=== PATIENT | female | born 1955 | race Caucasian/White ===

== ENCOUNTER 2016-06-27 03:57 | Emergency (ER) | payer OTHER ==
[2016-06-27] MEDS ORDERED: KETOROLAC TROMETHAMINE 60 MG/2 ML VIAL IM ONE ×2 (04:22→04:24)
--- NOTE | 2016-06-27 04:27 | ERNOTE ---
Back Pain ER HPI Date of Service: 06/27/16 Presenting Symptoms: hx chronic back pain Source: patient Immunizations: IMMUNIZATION HX Immunizations Up to Date Yes History of Influenza Vaccine No Hx Pneumococcal Vaccination No Allergies/Adverse Reactions: Allergies Penicillins Allergy (Intermediate, Verified 06/27/16 04:06) CANT BREATHE Home Medications: HOME MEDICATIONS Omeprazole 06/03/16 [Last Taken Unknown] Xanax 06/03/16 [Last Taken Unknown] Narrative: 61-year-old female returns once again the middle the night by ambulance requesting Dilaudid for her chronic back pain. I explained to this patient once again that we do not treat chronic pain in the emergency department and that she would not be getting an injection for Dilaudid. I offered Toradol and she accepted and was released after the injection of Toradol. Timing: Reports: constant Quality/Severity: Reports: severe - subjectively Location of pain: Reports: lower back Associated Symptoms: Reports: none - No bladder or bowel dysfunction - Patient's Past Medical History Patient History - Medical: Anxiety, Chronic Pain, Depression, GERD, Other Patient History - Cardiac/Respiratory: No pertinent hx Patient History - Cancer: No Hx of Cancer Patient History - Surgical Procedures: Total Knee Replacement, Tubal Ligation, Other - Family History Mother Family History - Medical: , Diabetes Type 2, Seizures, Other Family History - Cardiac/Respiratory: No pertinent hx Father Family History - Medical: , No pertinent hx Family History - Cardiac/Respiratory: No pertinent hx Sister Family History - Medical: , No pertinent hx Family History - Cardiac/Respiratory: No pertinent hx Brother Family History - Medical: , No pertinent hx Family History - Cardiac/Respiratory: History Unknown - Social History Living Situations: home Smoking Status: Current every day smoker Alcohol Use: none Drug Use: none ED Progress - Vital Signs Vital Signs: Vital Signs 06/27/16 04:01 Temperature 36.4 C L Pulse Rate 61 Respiratory 20 Rate Blood Pressure 107/49 O2 Sat by Pulse 96 Oximetry - Progress/Reassessment Chief Complaint: Back Pain Plan - Plan Plan: IM Toradol and encouraged to see her primary care provider to discuss chronic pain management Departure Clinical Impression: Drug-seeking behavior, Chronic pain syndrome Low back pain Qualifiers: Chronicity: chronic Back pain laterality: unspecified Sciatica presence: without sciatica Qualified Code(s): M54.5 - Low back pain; G89.29 - Other chronic pain - Departure Disposition: Home self-care Condition: Fair Additional Instructions: Make an appointment with your primary care provider to discuss your chronic pain and appropriate treatment.
[2016-06-27 04:34] VITALS: BP 106/72
== END 2016-06-27 04:33 | disposition home or self-care (01) ==
LOC: ER 03:57
DX: M54.5 Low back pain (principal); G89.29 Other chronic pain; Z76.5 Malingerer [conscious simulation]; F17.210 Nicotine dependence, cigarettes, uncomplicated

== ENCOUNTER 2016-07-01 09:13 | Emergency (ER) | payer OTHER ==
[2016-07-01] MEDS ORDERED: KETOROLAC TROMETHAMINE 60 MG/2 ML VIAL IM ONE ×2 (10:47→10:49)
--- NOTE | 2016-07-01 11:06 | ERNOTE ---
Back Pain ER HPI Date of Service: 07/01/16 Presenting Symptoms: hx chronic back pain Time Seen by Provider: 07/01/16 10:36 Source: patient, RN notes reviewed, past records Exam Limitations: clinical condition Immunizations: IMMUNIZATION HX Immunizations Up to Date Yes History of Influenza Vaccine Yes Hx Pneumococcal Vaccination No Allergies/Adverse Reactions: Allergies Penicillins Allergy (Intermediate, Verified 07/01/16 09:40) CANT BREATHE Home Medications: HOME MEDICATIONS Omeprazole 20 mg PO DAILY 06/03/16 [Last Taken Unknown] Xanax 1 mg PO QID 06/03/16 [Last Taken Unknown] Narrative: Inez is a 61-year-old female brought to the emergency department by the [facility] for back pain. She has a long-standing history of chronic pain as well as narcotic abuse. She was dismissed by her primary care provider, Dr. Gutierrez, yesterday due to missing appointments. His office had. A referral for her to be seen at the [facility] pain clinic. The pain clinic contacted her multiple times yesterday to set up an appointment, but she did not answer their calls. She refused to sign a pain contract at Dr. Gutierrez's office. She has been to the emergency department multiple times for various complaints of chronic pain issues. At times she has been intoxicated and even aggressive. She routinely takes Xanax, and today is reporting that it is making her too tired. She reports that she does not want to take anything that is going to cause more fatigued, but then asks to be given something to just "put me out." Location of pain: Reports: mid back Recent Injury?: Reports: no Modifying Factors - (Improves): Reports: nothing Modifying Factors - (Worsens): Reports: supine position, upright position, movement to right, movement to left, movement flexion, cough/deep breaths Associated Symptoms: Reports: difficulty walking, numbess/weakness in legs. Denies: constipation/incontinence, nausea/vomiting, problems urinating Prior Treament: Reports: recently seen, treated by physician, similar symptoms before Review of Systems - Review of Systems Constitutional: Present: See HPI EYE: Present: no symptoms reported ENT: Present: no symptoms reported Respiratory: Present: no symptoms reported Cardiology: Present: no symptoms reported Gastrointestinal/Abdominal: Present: See HPI Genitourinary: Present: See HPI Musculoskeletal: Present: See HPI Skin: Present: no symptoms reported Neurological: Present: See HPI Endocrine: Present: no symptoms reported Hematologic/Lymphatic: Present: no symptoms reported Psych: Present: anxiety, depressed - Patient's Past Medical History Patient History - Medical: Anxiety, Chronic Pain, Depression, GERD, Other Patient History - Cardiac/Respiratory: No pertinent hx Patient History - Cancer: No Hx of Cancer Patient History - Surgical Procedures: Total Knee Replacement, Tubal Ligation, Other LMP (females 10-50): Menopausal - Family History Mother Family History - Medical: , Diabetes Type 2, Seizures, Other Family History - Cardiac/Respiratory: No pertinent hx Father Family History - Medical: , No pertinent hx Family History - Cardiac/Respiratory: No pertinent hx Sister Family History - Medical: , No pertinent hx Family History - Cardiac/Respiratory: No pertinent hx Brother Family History - Medical: , No pertinent hx Family History - Cardiac/Respiratory: History Unknown - Social History Living Situations: home Smoking Status: Current every day smoker Cigarettes Packs Per Day: 0.5 Have you smoked in the past 12 months: Yes Alcohol Use: none Drug Use: none Physical Exam - Physical Exam General Appearance: Present: wd/wn, other - groggy, tearful Neck: Present: normal inspection, nontender, supple Respiratory: Present: no respiratory distress, normal breath sounds, no accessory muscle use, lungs clear Cardiovascular/Chest: Present: regular rate, rhythm, no murmur Extremity Exam: Present: normal inspection, no edema Neurological Exam: Present: oriented, other - dozes off when left unattended in room. Absent: alert, normal mood/affect Skin Exam: Present: normal color, warm/dry ED Progress - Vital Signs Patient's Vital Signs:: I have reviewed the patient's vital signs. Vital Signs: Vital Signs 07/01/16 09:32 Temperature 35.8 C L Pulse Rate 65 Respiratory 16 Rate Blood Pressure 144/83 O2 Sat by Pulse 95 Oximetry - Progress/Reassessment Chief Complaint: Back Pain Progress:: Unchanged Plan - Plan Plan: Explained to patient that chronic pain cannot be treated here. Instructed to contact the pain clinic. Toradol IM ordered. Departure Clinical Impression: Noncompliance with treatment Chronic pain Qualifiers: Chronic pain type: other chronic pain Qualified Code(s): G89.29 - Other chronic pain Back pain Qualifiers: Back pain location: thoracic back pain Chronicity: chronic Back pain laterality : unspecified Qualified Code(s): M54.6 - Pain in thoracic spine; G89.29 - Other chronic pain - Departure Disposition: Home Follow Up Needed Instructions: Chronic Pain Additional Instructions: Contact [facility] - they attempted to contact you several times yesterday The Emergency Department cannot manage your chronic back pain
[2016-07-01 11:15] VITALS: BP 133/75
== END 2016-07-01 11:13 | disposition home or self-care (01) ==
LOC: ER 09:13
DX: M54.6 Pain in thoracic spine (principal); G89.29 Other chronic pain; Z91.19 Patient's noncompliance with other medical treatment and regimen; F17.210 Nicotine dependence, cigarettes, uncomplicated

== ENCOUNTER 2016-08-28 15:21 | Emergency (ER) | payer OTHER ==
[2016-08-28 15:55] VITALS: BP 109/66
[2016-08-28 16:08] LABS: Hematocrit 37.2 % (37.0-47.0); Hemoglobin 12.3 gm/dL (12.5-16.0); Mean Cell Volume 92.8 fl (78-100); Mean Corpuscular Hemoglobin 30.7 pg (27-31); Mean Corpuscular Hgb Conc 33.1 g/dl (32-36); Mean Platelet Volume 8.4 fl (6.0-9.5); Neutrophil # 4.6 K/mm3 (1.3-6.0); Neutrophil % 52.4 % (42-75.0); Platelet Count 339 K/mm3 (150-450); Red Blood Count 4.01 M/mm3 (4.2-5.4); Red Cell Distribution Width 14.4 % (11.5-14.0); White Blood Count 8.7 K/mm3 (4.0-10.5)
--- NOTE | 2016-08-28 16:09 | ERNOTE ---
Headache ER HPI - Narrative Date of Service: 08/28/16 - General Presenting Symptoms: headache Time Seen by Provider: 08/28/16 15:25 Source: patient Exam Limitations: no limitations - Immun/Allergies/Home Medications Immunizations: IMMUNIZATION HX Immunizations Up to Date Yes History of Influenza Vaccine Yes Hx Pneumococcal Vaccination No Allergies/Adverse Reactions: Allergies Penicillins Allergy (Intermediate, Verified 08/28/16 15:31) CANT BREATHE Home Medications: HOME MEDICATIONS Xanax 1 mg PO TID 06/03/16 [Last Taken Unknown] Acetaminophen [Tylenol] 650 mg PO Q4H PRN 08/28/16 [Last Taken Unknown] Aspirin 325 mg PO DAILY 08/28/16 [Last Taken Unknown] Clopidogrel Bisulfate [Plavix] 75 mg PO DAILY 08/28/16 [Last Taken Unknown] Docusate Sodium [Stool Softener] 100 mg PO DAILY 08/28/16 [Last Taken Unknown] LORazepam [Ativan] 0.5 mg PO TID PRN 08/28/16 [Last Taken Unknown] Lansoprazole [Prevacid] 30 mg PO DAILY 08/28/16 [Last Taken Unknown] Loratadine [Claritin] 10 mg PO DAILY 08/28/16 [Last Taken Unknown] Oxycodone HCl/Acetaminophen [Percocet 5-325 mg Tablet] 1 each PO Q6H 08/28/16 [ Last Taken Unknown] Polyethylene Glycol 3350 [Miralax] 17 gm PO DAILY 08/28/16 [Last Taken Unknown] Sennosides [Senokot] 8.6 mg PO DAILY 08/28/16 [Last Taken Unknown] diphenhydrAMINE HCL [Benadryl] 25 mg PO HS 08/28/16 [Last Taken Unknown] traMADol HCL [Ultram] 50 mg PO QID PRN 08/28/16 [Last Taken Unknown] - Pain Pain Score: 10 - History of Present Illness Narrative: Patient who comes due to severe headache with visual changes that started suddenly. Patient had recent coiling done at [facility]. Timing of Headache: abrupt Context Headache: Present: new onset Quality: Present: sharp Severity Maximum: Present: severe Severity-Currently: Present: severe Headache frequency: Present: other - Hx of brain bleed Modifying Factors - (Improves): Reports: other - nothing Modifying Factors - (Worsens): Reports: exposure to light Associated Symptoms: Reports: nausea, vision changes. Denies: fever/chills, vomiting, sweating, fatigue, weakness, light-headedness, loss of consciousness, neck pain/stiffness, speech problems Exacerbated by:: Reports: position Prior Treament: Reports: recently seen - Patient had recent coiling done due to Intracranial bleeding. Review of Systems - Review of Systems Constitutional: Absent: fever, chills, weakness EYE: Present: double vision, vision changes ENT: Present: no symptoms reported Respiratory: Present: no symptoms reported Cardiology: Present: no symptoms reported Gastrointestinal/Abdominal: Present: no symptoms reported Genitourinary: Present: no symptoms reported Musculoskeletal: Present: no symptoms reported Skin: Present: no symptoms reported Neurological: Present: headache Endocrine: Present: no symptoms reported Hematologic/Lymphatic: Present: no symptoms reported Psych: Present: no symptoms reported All Other Systems: All systems neg except as marked - Patient's Past Medical History Patient History - Medical: Anxiety, Chronic Pain, Depression, GERD, Other Patient History - Cardiac/Respiratory: No pertinent hx Patient History - Cancer: No Hx of Cancer Patient History - Surgical Procedures: Total Knee Replacement, Tubal Ligation, Other Patient History - Other: None - Family History Mother Family History - Medical: , Diabetes Type 2, Seizures, Other Family History - Cardiac/Respiratory: No pertinent hx Father Family History - Medical: , No pertinent hx Family History - Cardiac/Respiratory: No pertinent hx Sister Family History - Medical: , No pertinent hx Family History - Cardiac/Respiratory: No pertinent hx Brother Family History - Medical: , No pertinent hx Family History - Cardiac/Respiratory: History Unknown - Social History Living Situations: home Abuse History: No History of abuse Psych History: Hx of Anxiety, Hx of Depression Alcohol Use: none Drug Use: none - Immunizations Immunizations Up to Date: Yes Hx Pneumococcal Vaccination: No History of Influenza Vaccine: Yes Physical Exam - Physical Exam General Appearance: Present: wd/wn, alert, no apparent distress, other - GCS: 15 /15, NIH Stroke Scale: 0 Eye Exam: Normal inspection: bilateral, PERRL: bilateral, EOMI: bilateral Ears, Nose, Throat: Present: normal ENT inspection Neck: Present: normal inspection, nontender. Absent: carotid bruit Respiratory: Present: no respiratory distress, normal breath sounds, no accessory muscle use, chest nontender, lungs clear Cardiovascular/Chest: Present: regular rate, rhythm, no murmur. Absent: JVD Gastrointestinal/Abdominal: Present: normal bowel sounds, nontender, nondistended, soft, no organomegaly Back Exam: Present: normal inspection, normal range of motion, no CVA tenderness , no vertebral tenderness Extremity Exam: Present: normal inspection, non-tender, normal range of motion, no edema Neurological Exam: Present: alert, oriented, normal mood/affect, no motor/ sensory deficits, drawing operator II-XII nml as tested Skin Exam: Present: normal color, warm/dry Lymphatic Exam: Present: no adenopathy ED Progress - Date and Time Seen: Date and Time: 08/28/16 16:12 Patient's case has been presented to [facility]. Dr. Venegas has accepted case. Patient's case was presented to [facility] and it was informed that patient will need to wait 1hr and 30min at lease in order to be transfer. Patient with Hx of aneurism, hypodensities on CT and severe headache. Patient needs further evaluation and the delay to wait for ground transport could be detrimental for patient. Patient will be fly to destination. - Results and Orders Patient's Lab Results:: I have reviewed the patient's lab results. Results and Orders: CBC: No anemia CMP: Ordered patient transferred prior result Trop: Ordered patient transferred prior result PT/PTT: Ordered patient transferred prior result - Vital Signs Vital Signs: Vital Signs 08/28/16 08/28/16 15:26 15:54 Temperature 36.5 C Pulse Rate 69 65 Respiratory 12 12 Rate Blood Pressure 131/57 109/66 O2 Sat by Pulse 97 96 Oximetry - EKG EKG: NSR EKG read: Interp. by me EKG Comments: HR: 66, No ST Elevation - CT/Ultrasound CT/Ultrasound Narrative: Radiology report noticed. R side changes noticed and were reported as non acute. - Progress/Reassessment Chief Complaint: Headache Progress:: Unchanged - Transfer of Care Expected Disposition: Transfer Departure Clinical Impression: Headache Qualifiers: Headache type: unspecified Headache chronicity pattern: acute headache Intractability: intractable Qualified Code(s): R51 - Headache - Departure Disposition: [facility] Condition: Fair
[2016-08-28] MEDS ORDERED: HYDROmorphone HCL 1 MG/ML DISP.SYRIN ONE (16:16)
[2016-08-28] MEDS ORDERED: ONDANSETRON HCL/PF 2 MG/ML VIAL ONE (16:16)
[2016-08-28] MEDS ORDERED: ONDANSETRON HCL/PF 2 MG/ML VIAL IV ONE (16:17)
[2016-08-28] MEDS ORDERED: HYDROmorphone HCL 1 MG/ML DISP.SYRIN IV ONE (16:17)
[2016-08-28 16:18] LABS: Prothrombin Time (Patient) 10.4 Seconds (9.4-11.4)
[2016-08-28 16:19] LABS: Partial Thrombolplastin Time 25.5 Seconds (24-32)
[2016-08-28 16:25] LABS: ALT 13 U/L (19-67); AST 15 U/L (0-48); Albumin * 3.5 gm/dl (3.4-5.0); Alkaline Phosphatase * 107 U/L (50-170); Anion Gap 12.5 mmol/L (6.8-13.8); BUN/Creatinine Ratio 13.6 (9.0-21.6); Bilirubin, Total 0.6 mg/dL (0.0-1.1); Blood Urea Nitrogen 11 mg/dL (3-23); Ca. Corrected For Albumin 8.6 mg/dL (8.4-10.2); Calcium * 8.5 mg/dL (7.9-10.9); Carbon Dioxide 26.4 mmol/L (24-32.6); Chloride 105 mmol/L (97-106); Glucose * 86 mg/dL (70-110); Potassium 3.9 mmol/L (3.4-4.6); Sodium 140 mmol/L (132-142); Troponin I Less than 0.017 ng/ml (0.00-0.10)
== END 2016-08-28 16:14 | disposition short-term general hospital (02) ==
LOC: ER 15:21
DX: R51 Headache (principal); G89.29 Other chronic pain; F41.8 Other specified anxiety disorders; K21.9 Gastro-esophageal reflux disease without esophagitis; Z98.890 Other specified postprocedural states; T81.9XXA Unspecified complication of procedure, initial encounter

== ENCOUNTER 2016-09-14 20:09 | Emergency (ER) | payer OTHER ==
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
[2016-09-14 20:41] LABS: Hematocrit 39.8 % (37.0-47.0); Hemoglobin 12.9 gm/dL (12.5-16.0); Mean Corpuscular Hemoglobin 30.8 pg (27-31); Mean Corpuscular Hgb Conc 32.4 g/dl (32-36); Mean Platelet Volume 8.5 fl (6.0-9.5); Neutrophil # 8.7 K/mm3 (1.3-6.0); Neutrophil % 71.5 % (42-75.0); Platelet Count 389 K/mm3 (150-450); Red Blood Count 4.19 M/mm3 (4.2-5.4); Red Cell Distribution Width 14.7 % (11.5-14.0); White Blood Count 12.1 K/mm3 (4.0-10.5)
[2016-09-14] MEDS ORDERED: CARISOPRODOL 350 MG TABLET PO PRN (20:49)
[2016-09-14] MEDS ORDERED: CARISOPRODOL 350 MG TABLET ONE (20:57)
[2016-09-14 21:50] VITALS: BP 108/49
== END 2016-09-14 21:25 | disposition home or self-care (01) ==
LOC: ER 20:09
PROC: 0JQ00ZZ Repair Scalp Subcutaneous Tissue and Fascia, Open Approach (ICD-10-PCS; principal; 2016-09-14)
DX: S01.01XA Laceration without foreign body of scalp, initial encounter (principal); W01.198A Fall on same level from slipping, tripping and stumbling with subsequent striking against other object, initial encounter; Y93.9 Activity, unspecified; Y92.007 Garden or yard of unspecified non-institutional (private) residence as the place of occurrence of the external cause; Y99.9 Unspecified external cause status

== ENCOUNTER 2016-09-15 22:15 | Emergency (ER) | payer OTHER ==
--- NOTE | 2016-09-15 22:31 | ERNOTE ---
Head Injury HPI - General Injury to: head - yesterday Time Seen by Provider: 09/15/16 22:19 Source: patient Exam Limitations: no limitations - Immun/Allergies/Home Medications Immunization: IMMUNIZATION HX Immunizations Up to Date Yes History of Influenza Vaccine Yes Hx Pneumococcal Vaccination No Allergies/Adverse Reactions: Allergies Allergy/AdvReac Type Severity Reaction Status Date / Time Penicillins Allergy Intermediate CANT Verified 09/14/16 20:22 BREATHE acetaminophen [From Endocet] Allergy Verified 09/14/16 20:22 morphine Allergy Verified 09/14/16 20:22 oxycodone HCl [From Endocet] Allergy Verified 09/14/16 20:22 Home Medications: HOME MEDICATIONS Xanax 1 mg PO TID 06/03/16 [Last Taken Unknown] Acetaminophen [Tylenol] 650 mg PO Q4H PRN 08/28/16 [Last Taken Unknown] Aspirin 325 mg PO DAILY 08/28/16 [Last Taken Unknown] Clopidogrel Bisulfate [Plavix] 75 mg PO DAILY 08/28/16 [Last Taken Unknown] Docusate Sodium [Stool Softener] 100 mg PO DAILY 08/28/16 [Last Taken Unknown] LORazepam [Ativan] 0.5 mg PO TID PRN 08/28/16 [Last Taken Unknown] Lansoprazole [Prevacid] 30 mg PO DAILY 08/28/16 [Last Taken Unknown] Loratadine [Claritin] 10 mg PO DAILY 08/28/16 [Last Taken Unknown] Polyethylene Glycol 3350 [Miralax] 17 gm PO DAILY 08/28/16 [Last Taken Unknown] Sennosides [Senokot] 8.6 mg PO DAILY 08/28/16 [Last Taken Unknown] diphenhydrAMINE HCL [Benadryl] 25 mg PO HS 08/28/16 [Last Taken Unknown] traMADol HCL [Ultram] 50 mg PO QID PRN 08/28/16 [Last Taken Unknown] Hydrocodone/Acetaminophen [Vicodin 5-300 mg Tablet] 1 tab PO Q6H PRN 09/15/16 [ Last Taken Unknown] - History of Present Illness Narrative: pt c/o pain from head injury yesterday. She was seen here and head laceration repaired with law. She states that the [facility] sends her pain medication and they sent the wrong one. She has not been taking the medication due to this and is in pain. Occurred: yesterday Location Occurred: home Severity: mild Head Injury Location: occipital Method of Injury: Reports: fell Reason for Fall: Reports: lost balance Review of Systems - Review of Systems Constitutional: Present: no symptoms reported EYE: Present: no symptoms reported ENT: Present: no symptoms reported Respiratory: Present: no symptoms reported Cardiology: Present: no symptoms reported Gastrointestinal/Abdominal: Present: no symptoms reported Genitourinary: Present: no symptoms reported Musculoskeletal: Absent: neck pain Skin: Present: no symptoms reported Neurological: Present: emotional problems Endocrine: Present: no symptoms reported Hematologic/Lymphatic: Present: no symptoms reported Psych: Present: no symptoms reported - Patient's Past Medical History Patient History - Medical: Anxiety, Chronic Pain, GERD, Other Patient History - Cardiac/Respiratory: No pertinent hx Patient History - Cancer: No Hx of Cancer Patient History - Surgical Procedures: Total Knee Replacement, Tubal Ligation, Other Patient History - Other: None - Family History Mother Family History - Medical: , Diabetes Type 2, Seizures, Other Family History - Cardiac/Respiratory: No pertinent hx Father Family History - Medical: , No pertinent hx Family History - Cardiac/Respiratory: No pertinent hx Sister Family History - Medical: , No pertinent hx Family History - Cardiac/Respiratory: No pertinent hx Brother Family History - Medical: , No pertinent hx Family History - Cardiac/Respiratory: History Unknown - Social History Living Situations: home Abuse History: No History of abuse Psych History: Hx of Anxiety, Hx of Depression Alcohol Use: none Drug Use: none - Immunizations Immunizations Up to Date: Yes Hx Pneumococcal Vaccination: No History of Influenza Vaccine: Yes Physical Exam - Physical Exam General Appearance: Present: wd/wn, alert, no apparent distress Eye Exam: Normal inspection: bilateral, PERRL: bilateral, EOMI: bilateral Ears, Nose, Throat: Present: normal ENT inspection, other - left occipital scalp laceration intact. all law in good position, no pulence or erythema Respiratory: Present: no respiratory distress, no accessory muscle use Neurological Exam: Present: alert, oriented, normal mood/affect Skin Exam: Present: normal color, warm/dry Departure Clinical Impression: Occipital scalp laceration Qualifiers: Encounter type: subsequent encounter Qualified Code(s): S01.01XD - Laceration without foreign body of scalp, subsequent encounter - Departure Disposition: Home self-care Condition: Good Additional Instructions: follow instructions given yesterday about your laceration. Take pain medications as prescribed by your pain doctor
[2016-09-15] MEDS ORDERED: NALBUPHINE HCL 20 MG/ML AMPUL IV ONE (23:07)
[2016-09-15] MEDS ORDERED: ONDANSETRON HCL/PF 2 MG/ML VIAL IV ONE (23:07)
[2016-09-15] MEDS ORDERED: ONDANSETRON HCL/PF 2 MG/ML VIAL ONE (23:13)
[2016-09-15] MEDS ORDERED: NALBUPHINE HCL 20 MG/ML AMPUL ONE (23:13)
[2016-09-15 23:31] VITALS: BP 110/58
== END 2016-09-15 23:30 | disposition home or self-care (01) ==
LOC: ER 22:15
DX: S01.01XD Laceration without foreign body of scalp, subsequent encounter (principal); R51 Headache

== ENCOUNTER 2016-09-24 09:14 | Emergency (ER) | payer OTHER ==
[2016-09-24 09:14] VITALS: BP 110/58
== END 2016-09-24 10:24 | disposition left against medical advice (07) ==
LOC: ER 09:14
DX: Z53.21 Procedure and treatment not carried out due to patient leaving prior to being seen by health care provider (principal)

== ENCOUNTER 2016-09-24 19:20 | Emergency (ER) | payer OTHER ==
[2016-09-24] MEDS ORDERED: NALBUPHINE HCL 20 MG/ML AMPUL IM ONE (21:19)
[2016-09-24] MEDS ORDERED: diphenhydrAMINE HCL 50 MG/ML VIAL IM ONE (21:19)
[2016-09-24] MEDS ORDERED: NALBUPHINE HCL 20 MG/ML AMPUL ONE (21:29)
[2016-09-24] MEDS ORDERED: diphenhydrAMINE HCL 50 MG/ML VIAL ONE (21:29)
--- NOTE | 2016-09-24 21:30 | ERNOTE ---
Medical Problem HPI - Narrative Date of Service: 09/24/16 - General Chief Complaint: General Assessment Time Seen by Provider: 09/24/16 21:14 Source: patient Exam Limitations: no limitations - Immun/Allergies/Home Medications Immunizations: IMMUNIZATION HX Immunizations Up to Date Yes History of Influenza Vaccine Yes Hx Pneumococcal Vaccination No Allergies/Adverse Reactions: Allergies Penicillins Allergy (Intermediate, Verified 09/24/16 19:50) CANT BREATHE acetaminophen [From Endocet] Allergy (Verified 09/24/16 19:50) morphine Allergy (Verified 09/24/16 19:50) oxycodone HCl [From Endocet] Allergy (Verified 09/24/16 19:50) Home Medications: HOME MEDICATIONS Xanax 1 mg PO TID 06/03/16 [Last Taken Unknown] Acetaminophen [Tylenol] 650 mg PO Q4H PRN 08/28/16 [Last Taken Unknown] Aspirin 325 mg PO DAILY 08/28/16 [Last Taken Unknown] Clopidogrel Bisulfate [Plavix] 75 mg PO DAILY 08/28/16 [Last Taken Unknown] Docusate Sodium [Stool Softener] 100 mg PO DAILY 08/28/16 [Last Taken Unknown] LORazepam [Ativan] 0.5 mg PO TID PRN 08/28/16 [Last Taken Unknown] Lansoprazole [Prevacid] 30 mg PO DAILY 08/28/16 [Last Taken Unknown] Loratadine [Claritin] 10 mg PO DAILY 08/28/16 [Last Taken Unknown] Polyethylene Glycol 3350 [Miralax] 17 gm PO DAILY 08/28/16 [Last Taken Unknown] Sennosides [Senokot] 8.6 mg PO DAILY 08/28/16 [Last Taken Unknown] diphenhydrAMINE HCL [Benadryl] 25 mg PO HS 08/28/16 [Last Taken Unknown] traMADol HCL [Ultram] 50 mg PO QID PRN 08/28/16 [Last Taken Unknown] HYDROcodone/ACETAMINOPHEN [Vicodin 5-300 mg Tablet] 1 tab PO Q6H PRN 09/15/16 [ Last Taken Unknown] - History of Present History Narrative: Pt. comes in with c/o the worst headache ever. Pt. 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 Pt. denies nay nausea, vomiting, fever, SOB, CP, rhinorrhea, ear pain, but does states that she has some muscle weakness and dizziness. Pt. states that symptoms started a week ago and has steadily worsened. Pt. states that she has taken tylenol for the pain without relief. Pt. has a hx of drug and ETOH abuse but denies any at this time. Review of Systems - Review of Systems Constitutional: Present: no symptoms reported. Absent: recent illness, fever, chills, weakness, fatigue, malaise EYE: Present: no symptoms reported ENT: Present: no symptoms reported Respiratory: Present: no symptoms reported. Absent: shortness of breath, cough , wheezing Cardiology: Present: no symptoms reported. Absent: chest pain, palpitations, edema Gastrointestinal/Abdominal: Present: no symptoms reported. Absent: nausea, vomiting, diarrhea Genitourinary: Present: no symptoms reported Musculoskeletal: Present: back pain - chronic. Absent: joint pain Skin: Present: no symptoms reported Neurological: Present: headache, dizziness/light-headedness. Absent: numbness, tingling All Other Systems: All systems neg except as marked - Patient's Past Medical History Patient History - Medical: Anxiety, Chronic Pain, GERD Patient History - Cardiac/Respiratory: No pertinent hx Patient History - Cancer: No Hx of Cancer Patient History - Surgical Procedures: Total Knee Replacement, Tubal Ligation, Other Patient History - Other: None - Family History Mother Family History - Medical: , Diabetes Type 2, Seizures, Other Family History - Cardiac/Respiratory: No pertinent hx Father Family History - Medical: , No pertinent hx Family History - Cardiac/Respiratory: No pertinent hx Sister Family History - Medical: , No pertinent hx Family History - Cardiac/Respiratory: No pertinent hx Brother Family History - Medical: , No pertinent hx Family History - Cardiac/Respiratory: History Unknown - Social History Living Situations: home Abuse History: No History of abuse Psych History: Hx of Anxiety, Hx of Depression Smoking Status: Current every day smoker Alcohol Use: none Drug Use: none - Immunizations Immunizations Up to Date: Yes Hx Pneumococcal Vaccination: No History of Influenza Vaccine: Yes Physical Exam - Physical Exam General Appearance: Present: wd/wn, alert, no apparent distress Eye Exam: Normal inspection: bilateral, PERRL: bilateral, EOMI: bilateral Ears, Nose, Throat: Present: normal ENT inspection, normal pharynx Neck: Present: normal inspection, nontender. Absent: lymphadenopathy (R), lymphadenopathy (L) Respiratory: Present: no respiratory distress, normal breath sounds, no accessory muscle use, chest nontender, lungs clear Cardiovascular/Chest: Present: regular rate, rhythm, no murmur, normal peripheral pulses Gastrointestinal/Abdominal: Present: normal bowel sounds, nontender, nondistended, soft, no organomegaly Back Exam: Present: vertebral tenderness - throughout normal for pt., decreased range of motion. Absent: muscle spasm Extremity Exam: Present: normal inspection, non-tender, normal range of motion, no edema Neurological Exam: Present: alert, oriented, no motor/sensory deficits, risk reduction counselor II- XII nml as tested, normal cerebellar test, other - agitated Skin Exam: Present: normal color, warm/dry. Absent: pallor, skin rash ED Progress - Date and Time Seen: Date and Time: 09/25/16 00:[address] Figueroa and he states that lesion has not enlarged significantly but states taht she has prominent edema compared to previous. Discussed with Dr Stephens at [facility] and he states that pt. will always have edema and he will manage at her appointment in 2 weeks. - Vital Signs Patient's Vital Signs:: I have reviewed the patient's vital signs. Vital Signs: Vital Signs 09/24/16 19:46 Temperature 36.5 C Pulse Rate 76 Respiratory 18 Rate Blood Pressure 146/72 O2 Sat by Pulse 95 Oximetry - Progress/Reassessment Chief Complaint: General Assessment Departure - Departure Clinical Impression: Cerebral edema Cerebral parenchymal hemorrhage Qualifiers: Intracerebral hemorrhage etiology: nontraumatic Cerebral hemorrhage location: cerebral hemisphere, cortical portion Laterality: left Qualified Code(s): I61.1 - Nontraumatic intracerebral hemorrhage in hemisphere, cortical Disposition: Home self-care Condition: Good Instructions: Cerebral Edema Additional Instructions: Please keep appointment with [facility] neuro surgery in 2 weeks.
[2016-09-25 00:10] VITALS: BP 96/52
== END 2016-09-25 00:57 | disposition home or self-care (01) ==
LOC: ER 19:20
DX: G93.6 Cerebral edema (principal); I61.1 Nontraumatic intracerebral hemorrhage in hemisphere, cortical; Z72.0 Tobacco use; Z48.02 Encounter for removal of sutures

== ENCOUNTER 2016-09-26 18:33 | Emergency (ER) | payer OTHER ==
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
[2016-09-26 19:49] LABS: Hematocrit 44.2 % (37.0-47.0); Hemoglobin 14.5 gm/dL (12.5-16.0); Mean Corpuscular Hemoglobin 30.9 pg (27-31); Mean Corpuscular Hgb Conc 32.8 g/dl (32-36); Mean Platelet Volume 8.4 fl (6.0-9.5); Neutrophil # 2.9 K/mm3 (1.3-6.0); Neutrophil % 48.3 % (42-75.0); Platelet Count 350 K/mm3 (150-450)
[2016-09-26 20:04] LABS: Albumin * 3.7 gm/dl (3.4-5.0); Anion Gap 16.1 mmol/L (6.8-13.8); BUN/Creatinine Ratio 11.9 (9.0-21.6); Bilirubin, Total 0.2 mg/dL (0.0-1.1); Ca. Corrected For Albumin 8.4 mg/dL (8.4-10.2); Calcium * 8.5 mg/dL (7.9-10.9); Carbon Dioxide 24.4 mmol/L (24-32.6); Potassium 3.5 mmol/L (3.4-4.6); Total Protein 7.6 gm/dL (6.2-8.2)
[2016-09-26 20:29] LABS: Urine Bilirubin Negative (NEGATIVE); Urine Blood Negative /ul (NEGATIVE); Urine Ketone Negative (NEGATIVE); Urine Nitrite Negative (NEGATIVE); Urine Protein Negative (NEGATIVE); Urine Specific Gravity <=1.005 SP.GR. (1.005-1.010); Urine Urobilinogen Normal (NORMAL)
[2016-09-26 20:37] LABS: Urine Appearance Clear; Urine Bacteria 1+; Urine Color Pale Yellow; Urine RBC None Seen /hpf (0-5); Urine WBC None Seen /hpf (0-5)
[2016-09-26 20:41] LABS: Cocaine Ur Negative (NEGATIVE); Urine Barbiturate Negative (NEGATIVE); Urine Opiates Negative (NEGATIVE); Urine PCP Negative (NEGATIVE); Urine THC Negative (NEGATIVE)
[2016-09-26 20:57] LABS: Urine Benzodiazepines Positive (NEGATIVE)
[2016-09-26 22:17] LABS: Salicylate 5.2 mg/dL (2.8-20.0)
[2016-09-26 22:38] VITALS: BP 139/72
[2016-09-26] MEDS ORDERED: ONDANSETRON HCL/PF 2 MG/ML VIAL ONE (22:52)
[2016-09-26] MEDS ORDERED: ONDANSETRON HCL/PF 2 MG/ML VIAL IV ONE (22:54)
== END 2016-09-26 23:00 | disposition short-term general hospital (02) ==
LOC: ER 18:33
DX: G93.6 Cerebral edema (principal); F10.10 Alcohol abuse, uncomplicated; F19.921 Other psychoactive substance use, unspecified with intoxication with delirium; T42.4X2A Poisoning by benzodiazepines, intentional self-harm, initial encounter; F17.200 Nicotine dependence, unspecified, uncomplicated
CPT/HCPCS: 36415; 36600; 80053; 80307; 81001; 82140; 82803; 83605; 85025; 96374; 99283; G0480; G0481

== ENCOUNTER → 2016-11-08 12:01 | Emergency (ER) | payer OTHER ==
[2016-11-08 12:01] VITALS: BP 139/72
[2016-11-08 12:34] LABS: Urine Bilirubin Negative (NEGATIVE); Urine Blood Negative /ul (NEGATIVE); Urine Ketone Negative (NEGATIVE); Urine Nitrite Negative (NEGATIVE); Urine Protein Negative (NEGATIVE); Urine Specific Gravity <=1.005 SP.GR. (1.005-1.010); Urine Urobilinogen Normal (NORMAL)
[2016-11-08 12:40] LABS: Urine Appearance Clear; Urine Bacteria None Seen; Urine Color Yellow; Urine RBC None Seen /hpf (0-5); Urine WBC None Seen /hpf (0-5)
== END | disposition left against medical advice (07) ==
LOC: ER 12:01
DX: Z53.21 Procedure and treatment not carried out due to patient leaving prior to being seen by health care provider (principal)

== ENCOUNTER 2016-11-11 09:31 | Emergency (ER) | payer OTHER ==
[2016-11-11] MEDS ORDERED: HYDROcodone/ACETAMINOPHEN 1 EACH TABLET PO ONE (10:06)
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
[2016-11-11] MEDS ORDERED: HYDROcodone/ACETAMINOPHEN 1 EACH TABLET ONE (10:18)
[2016-11-11 10:22] VITALS: BP 153/84
== END 2016-11-11 11:06 | disposition home or self-care (01) ==
LOC: ER 09:31
DX: S70.211A Abrasion, right hip, initial encounter (principal); W19.XXXA Unspecified fall, initial encounter; Y93.9 Activity, unspecified; Y92.9 Unspecified place or not applicable; S23.41XA Sprain of ribs, initial encounter; K21.9 Gastro-esophageal reflux disease without esophagitis

== ENCOUNTER 2016-11-20 19:00 | Emergency (ER) | payer OTHER ==
--- NOTE | 2016-11-20 19:11 | ERNOTE ---
<Rebecca Chawla - Last Filed: 11/20/16 19:46> Psychological HPI - General Source: Reports: patient, EMS Exam Limitations: Reports: clinical condition, intoxication - Immun/Allergies/Home Medications Allergies/Adverse Reactions: Allergies Penicillins Allergy (Intermediate, Verified 11/20/16 19:14) CANT BREATHE acetaminophen [From Endocet] Allergy (Verified 11/20/16 19:14) morphine Allergy (Verified 11/20/16 19:14) oxycodone HCl [From Endocet] Allergy (Verified 11/20/16 19:14) Home Medications: HOME MEDICATIONS Xanax 1 mg PO TID 06/03/16 [Last Taken Unknown] Acetaminophen [Tylenol] 500 mg PO HS 01/16/17 [Last Taken Unknown] Albuterol Sulfate [Proair Hfa] 1 - 2 puff IH Q4H PRN 01/16/17 [Last Taken Unknown] Tramadol HCl [Rybix Odt] 50 mg PO QID PRN 01/16/17 [Last Taken Unknown] - History of Present Illness Narrative: Patient is brought in by EMS, they report that her neighbor called and was concerned that she possibly overdosed as she had white powder around her mouth. Patient has no concerns, states that she only had half a beer, denies taking any medications but that her pills got lost while moving today. She has a bottle of alprazolam #90 filled on the 11/16 that is empty. Time Seen by Provider: 11/20/16 19:00 Arrived by: Reports: ambulance Review of Systems - Narrative Narrative: limited history due to intoxication - Review of Systems Constitutional: Absent: recent illness Respiratory: Absent: shortness of breath Cardiology: Absent: chest pain Gastrointestinal/Abdominal: Absent: nausea, abdominal pain Neurological: Absent: headache - Patient's Past Medical History Patient History - Medical: Alcohol Abuse, Anxiety, Chronic Pain, GERD, Other - drug use, history of intracranial bleed 05/2016 Patient History - Cardiac/Respiratory: No pertinent hx Patient History - Cancer: No Hx of Cancer Patient History - Surgical Procedures: Total Knee Replacement, Tubal Ligation, Other Patient History - Other: None - Family History Mother Family History - Medical: , Diabetes Type 2, Seizures, Other Family History - Cardiac/Respiratory: No pertinent hx Father Family History - Medical: , No pertinent hx Family History - Cardiac/Respiratory: No pertinent hx Sister Family History - Medical: , No pertinent hx Family History - Cardiac/Respiratory: No pertinent hx Brother Family History - Medical: , No pertinent hx Family History - Cardiac/Respiratory: History Unknown - Social History Living Situations: alone Abuse History: No History of abuse Psych History: Hx of Anxiety, Hx of Depression Alcohol Use: heavy Drug Use: none - Immunizations Immunizations Up to Date: Yes Hx Pneumococcal Vaccination: No History of Influenza Vaccine: No Physical Exam - Physical Exam General Appearance: Present: wd/wn, alert, no apparent distress, other - intoxicated Eye Exam: Normal inspection: bilateral, PERRL: bilateral Ears, Nose, Throat: Present: other - no obvious signs of injury Neck: Present: normal inspection, nontender Respiratory: Present: no respiratory distress, normal breath sounds, no accessory muscle use, lungs clear Cardiovascular/Chest: Present: regular rate, rhythm, no murmur Gastrointestinal/Abdominal: Present: nontender, nondistended, soft Back Exam: Present: normal inspection, no CVA tenderness, no vertebral tenderness Extremity Exam: Present: normal inspection, normal except - - minmal tender over dorsal foot proximally, no obvious sign of injury, no edema Neurological Exam: Present: alert, normal mood/affect, disoriented to time - knows month and year, not date, disoriented to situation. Absent: disoriented to person, disoriented to place Skin Exam: Present: normal color, warm/dry ED Progress - Vital Signs Patient's Vital Signs:: I have reviewed the patient's vital signs. - EKG EKG: NSR EKG read: Interp. by me - Progress/Reassessment Progress Note-Subjective: 11/20/16 19:30 patient now states that a box spring hit her foot when she dropped it in her move and complains of foot pain and wants something for it. patient arguing and wanting to leave - Transfer of Care Physician Sign Out: Rebecca Chawla Receiving Physician: Eze Bob Departure Clinical Impression: Benzodiazepine (tranquilizer) overdose, Alcohol abuse - Departure Disposition: Home self-care Condition: Fair <Eze Bob - Last Filed: 02/01/17 16:21> Psychological HPI - General Source: Reports: patient Exam Limitations: Reports: clinical condition - History of Present Illness Date (Duration): 11/20/16 Time (Timing): 20:25 Arrived by: Reports: ambulance Onset/duration: Reports: gradual onset Intent: Reports: other - 61 y/o female whose neighbor thought she had taken a large dose of medications called EMS. They found patient to be at her baseline but also found a bottle of Xanax which was recently filled and empty. Patient denied taking more than prescribed amount of the above. Denies any alcohol use, Tylenol or Aspirin use. Reports not takng more than her other prescribed medication. Patient does report having some mild left foot pain with no specific injury. Patient with known past h/o of alcohol and drug abuse as well as intracerebral bleed. Mechanism: Reports: other - Possible overdose. Above denied by patient. Associated Symptoms: Reports: agitated, confused - Patient mild confusion appears to be baseline per individuals at ED who have treated this patient multiple times previously. Prior Treament: Reports: similar symptoms before Review of Systems - Review of Systems Constitutional: Present: no symptoms reported EYE: Present: no symptoms reported ENT: Present: no symptoms reported Respiratory: Present: no symptoms reported Cardiology: Present: no symptoms reported Gastrointestinal/Abdominal: Present: no symptoms reported Genitourinary: Present: no symptoms reported Musculoskeletal: Present: joint pain Skin: Present: no symptoms reported Neurological: Present: other - Chronic use of BDZ/ETOH and other substances with mild drowsiness/confusion her baseline. Endocrine: Present: no symptoms reported Hematologic/Lymphatic: Present: no symptoms reported Psych: Present: other - Patient upset about being brought to ED. Reports nothing wrong and wanting d/c. - Patient's Past Medical History Patient History - Medical: Alcohol Abuse, Anxiety, Chronic Pain, GERD, Other Physical Exam - Physical Exam General Appearance: Present: wd/wn, mild distress, lethargic Eye Exam: Normal inspection: bilateral - no abnormalities noted, PERRL: bilateral, EOMI: bilateral Ears, Nose, Throat: Present: normal ENT inspection Neck: Present: normal inspection, nontender Respiratory: Present: no respiratory distress, normal breath sounds, no accessory muscle use, lungs clear Cardiovascular/Chest: Present: regular rate, rhythm, no murmur Peripheral Pulses: N=norm/S=strong/W=weak/B=bound/A=absent: Carotid (R): Normal , Carotid (L): Normal, Radial (R): Normal, Radial (L): Normal, Dorsalis-pedis (R ): Normal, Dorsalis-pedis (L): Normal Gastrointestinal/Abdominal: Present: normal bowel sounds, nontender, nondistended, soft, no organomegaly Back Exam: Present: normal inspection, no CVA tenderness, no vertebral tenderness Extremity Exam: Present: bony tenderness, other - left bouffant curtain machine tender especially hindfoot area Neurological Exam: Present: no motor/sensory deficits, drywall installer II-XII nml as tested , normal cerebellar test ED Progress - Results and Orders Patient's Lab Results:: I have reviewed the patient's lab results. - Vital Signs Patient's Vital Signs:: I have reviewed the patient's vital signs. Vital Signs: Vital Signs 11/20/16 11/20/16 11/20/16 19:03 19:16 19:36 Temperature 37.1 C Pulse Rate 75 74 72 Respiratory 14 16 13 Rate Blood Pressure 102/41 102/41 90/40 O2 Sat by Pulse 95 100 98 Oximetry - CT/Ultrasound CT/Ultrasound Narrative: CT scan had shows old abnormality left side unchanged from 09-24-16 CT scan. Previously read as temporal lobe hyperdensity grossly stable ? on 09-24-16 but today reported as concerning for mass. This same patient sent to [facility] for same edema on 09-24-16. She was seen by neurosurgeon, Dr. Brody, who evaluated her and reported that she will also have edema due to her previous intracerebral bleed and aneurysm and that he would manage side effects associated with above. Discussed above with Dr. Stefano Rae who performed todays CT read. He reports no change from previous studies edema or presentation but still concerned for underlying mass despite previous workup by Dr. Brody. This WILL NEED to be followed up as outpatient as patient refusing admission. Have left messages for patient to please contact me to re-confirm need to have the above followed as outpatient. Recommend f/u one week with neurosurgeon, Dr. Brody as she apparently missed their original followup appointment. X-ray left foot. No degenerative changes but no acute bony N [place].
[2016-11-20 19:24] LABS: Hemoglobin 12.6 gm/dL (12.5-16.0); Mean Cell Volume 94.1 fl (78-100); Mean Corpuscular Hemoglobin 31.2 pg (27-31); Mean Corpuscular Hgb Conc 33.2 g/dl (32-36); Mean Platelet Volume 8.6 fl (6.0-9.5); Neutrophil # 4.4 K/mm3 (1.3-6.0); Neutrophil % 49.8 % (42-75.0); Platelet Count 434 K/mm3 (150-450); Red Blood Count 4.04 M/mm3 (4.2-5.4); Red Cell Distribution Width 13.2 % (11.5-14.0); White Blood Count 8.8 K/mm3 (4.0-10.5)
[2016-11-20] MEDS ORDERED: MULTIVIT INFUSN,ADULT 4,VIT K 10 ML, THIAMINE HCL 100 MG in NORMAL SALINE 1,000 ML IV SCH (19:30)
[2016-11-20 19:44] LABS: ALT 18 U/L (19-67); AST 23 U/L (0-48); Acetaminophen * 1.5 mcg/mL (10.0-30.0); Albumin * 3.6 gm/dl (3.4-5.0); Alkaline Phosphatase * 119 U/L (50-170); Anion Gap 12.9 mmol/L (6.8-13.8); BUN/Creatinine Ratio 7.2 (9.0-21.6); Bilirubin, Total 0.5 mg/dL (0.0-1.1); Blood Urea Nitrogen 7 mg/dL (3-23); Ca. Corrected For Albumin 9.2 mg/dL (8.4-10.2); Calcium * 9.2 mg/dL (7.9-10.9); Carbon Dioxide 25.4 mmol/L (24-32.6); Chloride 107 mmol/L (97-106); Glucose * 82 mg/dL (70-110); Potassium 3.3 mmol/L (3.4-4.6); Salicylate 6.2 mg/dL (2.8-20.0); Sodium 142 mmol/L (132-142); TSH * 1.263 uIU/mL (0.358-3.74); Total Protein 6.8 gm/dL (6.2-8.2)
[2016-11-20 19:50] LABS: Urine Appearance Clear; Urine Bilirubin Negative (NEGATIVE); Urine Blood Negative /ul (NEGATIVE); Urine Color Yellow; Urine Ketone Negative (NEGATIVE); Urine Nitrite Negative (NEGATIVE); Urine Protein Negative (NEGATIVE); Urine Specific Gravity 1.005 SP.GR. (1.005-1.010); Urine Urobilinogen Normal (NORMAL)
[2016-11-20 19:51] LABS: Urine Bacteria None Seen; Urine RBC None Seen /hpf (0-5); Urine WBC 0-5 /hpf (0-5)
[2016-11-20 19:51] LABS: Cocaine Ur Negative (NEGATIVE); Urine Barbiturate Negative (NEGATIVE); Urine Opiates Negative (NEGATIVE); Urine PCP Negative (NEGATIVE); Urine THC Negative (NEGATIVE)
[2016-11-20 19:52] LABS: Urine Benzodiazepines Positive (NEGATIVE)
[2016-11-20] MEDS ORDERED: POTASSIUM CHLORIDE 20 MEQ TABLET.SA PO ONE (19:56)
[2016-11-20] MEDS ORDERED: POTASSIUM CHLORIDE 20 MEQ TABLET.SA ONE (20:07)
[2016-11-20] MEDS ORDERED: KETOROLAC TROMETHAMINE 60 MG/2 ML VIAL IM ONE ×2 (20:16→20:17)
[2016-11-20 20:34] VITALS: BP 110/54
== END 2016-11-20 20:37 | disposition home or self-care (01) ==
LOC: ER 19:00
DX: T42.4X1A Poisoning by benzodiazepines, accidental (unintentional), initial encounter (principal); F10.10 Alcohol abuse, uncomplicated; Y92.009 Unspecified place in unspecified non-institutional (private) residence as the place of occurrence of the external cause; M79.672 Pain in left foot; F41.9 Anxiety disorder, unspecified
CPT/HCPCS: 36415; 70450; 73630; 80053; 80307; 81001; 84443; 85025; 93005; 96372; 99284; G0480; G0481

== ENCOUNTER 2017-01-16 21:08 | Emergency (ER) | payer OTHER ==
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
[2017-01-16 21:39] LABS: Hematocrit 40.2 % (37.0-47.0); Hemoglobin 13.6 gm/dL (12.5-16.0); Mean Cell Volume 93.1 fl (78-100); Mean Corpuscular Hemoglobin 31.5 pg (27-31); Mean Corpuscular Hgb Conc 33.8 g/dl (32-36); Neutrophil % 53.4 % (42-75.0); Platelet Count 348 K/mm3 (150-450); Red Blood Count 4.32 M/mm3 (4.2-5.4); Red Cell Distribution Width 13.2 % (11.5-14.0); White Blood Count 9.5 K/mm3 (4.0-10.5)
[2017-01-16 21:55] LABS: Acetaminophen * 0.3 mcg/mL (10.0-30.0); Albumin * 3.5 gm/dl (3.4-5.0); BUN/Creatinine Ratio 17.1 (9.0-21.6); Bilirubin, Total 0.6 mg/dL (0.0-1.1); Calcium * 8.9 mg/dL (7.9-10.9); Potassium 3.6 mmol/L (3.4-4.6); Salicylate 4.6 mg/dL (2.8-20.0); Total Protein 6.8 gm/dL (6.2-8.2)
[2017-01-16 22:08] LABS: Anion Gap 12.5 mmol/L (6.8-13.8); Carbon Dioxide 25.1 mmol/L (24-32.6)
[2017-01-16 22:42] LABS: Urine Bilirubin Negative (NEGATIVE); Urine Blood Negative /ul (NEGATIVE); Urine Ketone Negative (NEGATIVE); Urine Nitrite Negative (NEGATIVE); Urine Protein Negative (NEGATIVE); Urine Specific Gravity <=1.005 SP.GR. (1.005-1.010); Urine Urobilinogen Normal (NORMAL)
[2017-01-16 22:52] LABS: Urine Amorphous Sediment Few - 1+ (NONE-FEW); Urine Appearance Clear; Urine Bacteria 1+; Urine Color Yellow; Urine RBC None Seen /hpf (0-5); Urine WBC None Seen /hpf (0-5)
[2017-01-16 22:54] LABS: Cocaine Ur Negative (NEGATIVE); Urine Barbiturate Negative (NEGATIVE); Urine Opiates Negative (NEGATIVE); Urine PCP Negative (NEGATIVE); Urine THC Negative (NEGATIVE)
[2017-01-16 22:55] LABS: Urine Benzodiazepines Positive (NEGATIVE)
[2017-01-17 00:50] VITALS: BP 144/68
== END 2017-01-17 00:05 | disposition home or self-care (01) ==
LOC: ER 21:08
PROC: 0HQ1XZZ Repair Face Skin, External Approach (ICD-10-PCS; principal; 2017-01-16)
DX: S01.81XA Laceration without foreign body of other part of head, initial encounter (principal); W10.9XXA Fall (on) (from) unspecified stairs and steps, initial encounter
CPT/HCPCS: 12013; 36415; 70450; 80053; 80307; 81001; 85025; 93005; 94762; 99282; G0480; G0481

== ENCOUNTER 2017-02-06 10:48 | Emergency (ER) | payer OTHER ==
[2017-02-06 11:07] VITALS: BP 102/60
[2017-02-06] MEDS ORDERED: ORPHENADRINE CITRATE 30 MG/ML VIAL IM ONE (11:39)
[2017-02-06] MEDS ORDERED: KETOROLAC TROMETHAMINE 60 MG/2 ML VIAL IM ONE ×2 (11:39→11:46)
--- NOTE | 2017-02-06 11:43 | ERNOTE ---
Back Pain ER HPI Date of Service: 02/06/17 Presenting Symptoms: injury/pain to back Time Seen by Provider: 02/06/17 11:36 Source: patient, RN notes reviewed, past records Exam Limitations: clinical condition Immunizations: IMMUNIZATION HX Immunizations Up to Date Yes History of Influenza Vaccine Yes Hx Pneumococcal Vaccination Yes Allergies/Adverse Reactions: Allergies Penicillins Allergy (Intermediate, Verified 02/06/17 11:10) CANT BREATHE morphine Allergy (Verified 02/06/17 11:10) Home Medications: HOME MEDICATIONS Xanax 1 mg PO TID 06/03/16 [Last Taken Unknown] Acetaminophen [Tylenol] 500 mg PO HS 01/16/17 [Last Taken Unknown] Albuterol Sulfate [Proair Hfa] 1 - 2 puff IH Q4H PRN 01/16/17 [Last Taken Unknown] Cyclobenzaprine HCl [Flexeril] 10 mg PO TID PRN #12 tab 02/06/17 [Last Taken Unknown] Gabapentin 300 mg PO TID 02/06/17 [Last Taken Unknown] Carisoprodol [Soma] 250 mg PO TID PRN #90 tab 02/08/17 [Last Taken Unknown] Narrative: 62 y/o female brought to the ED by [facility] for severe left lower back pain radiating down her leg. This began gradually yesterday after she had been doing yard work and was worse this morning. She has had similar symptoms in the past. She also has a history of prescription drug misuse/overdose and alcohol abuse. She has been taking over the counter pain medications without improvement. Date (Duration): 02/05/17 Timing: Reports: constant, getting worse Quality/Severity: Reports: severe, aching Location of pain: Reports: lower back, radiating to lf thigh/leg Activities at Onset: Reports: activity Recent Injury?: Reports: no Possible Precipitating Factor: Reports: lifting, turning/bending Modifying Factors - (Improves): Reports: nothing Modifying Factors - (Worsens): Reports: supine position, upright position, movement flexion Associated Symptoms: Reports: difficulty walking. Denies: fever/chills, sweating, constipation/incontinence, nausea/vomiting, problems urinating, lightheadedness, numbess/weakness in legs Prior Treament: Reports: recently seen, similar symptoms before Review of Systems - Review of Systems Constitutional: Absent: recent illness, fever, chills EYE: Present: no symptoms reported ENT: Present: no symptoms reported Respiratory: Absent: shortness of breath, cough Cardiology: Absent: chest pain, syncope, edema Gastrointestinal/Abdominal: Absent: nausea, vomiting, abdominal pain Genitourinary: Absent: dysuria, hematuria Musculoskeletal: Present: back pain, muscle pain. Absent: neck pain, joint pain , joint swelling Skin: Absent: rash, lesions, lumps Neurological: Absent: dizziness/light-headedness, weakness, numbness, tingling Endocrine: Present: no symptoms reported Hematologic/Lymphatic: Present: no symptoms reported Psych: Present: anxiety, depressed, emotional problems - Patient's Past Medical History Patient History - Medical: Anxiety Patient History - Cardiac/Respiratory: Aneurysm Patient History - Cancer: No Hx of Cancer Patient History - Surgical Procedures: Other Patient History - Other: None LMP (females 10-50): post menopausal. - Family History Mother Family History - Medical: , Diabetes Type 2, Seizures, Other Family History - Cardiac/Respiratory: No pertinent hx Father Family History - Medical: , No pertinent hx Family History - Cardiac/Respiratory: No pertinent hx Sister Family History - Medical: , No pertinent hx Family History - Cardiac/Respiratory: No pertinent hx Brother Family History - Medical: , No pertinent hx Family History - Cardiac/Respiratory: History Unknown - Social History Living Situations: home Abuse History: No History of abuse Psych History: Hx of Anxiety, Current tx/ever been on anti-depressants or anti- anxiety meds Smoking Status: Current every day smoker Alcohol Use: heavy Drug Use: none - Immunizations Immunizations Up to Date: Yes Hx Pneumococcal Vaccination: Yes History of Influenza Vaccine: Yes Physical Exam - Physical Exam General Appearance: Present: wd/wn, alert, moderate distress Head Exam: Present: normal inspection, no evidence of injury Neck: Present: normal inspection, nontender, supple, full range of motion Respiratory: Present: no respiratory distress, normal breath sounds, no accessory muscle use, lungs clear Cardiovascular/Chest: Present: regular rate, rhythm, no murmur, normal peripheral pulses Back Exam: Present: no CVA tenderness, no vertebral tenderness, decreased range of motion, other - tenderness with palpation in left sacral region Extremity Exam: Present: normal inspection, no edema, decreased range of motion - Left lower extremity Neurological Exam: Present: alert, oriented, no motor/sensory deficits, other - very dramatic. Absent: normal mood/affect Skin Exam: Present: normal color, warm/dry ED Progress - Vital Signs Patient's Vital Signs:: I have reviewed the patient's vital signs. Vital Signs: Vital Signs 02/06/17 02/06/17 10:48 10:57 Temperature 37.1 C 37.6 C H Pulse Rate 69 Respiratory 16 Rate Blood Pressure 102/60 O2 Sat by Pulse 97 Oximetry - Progress/Reassessment Chief Complaint: Back Pain Progress:: Improved Plan - Plan Plan: Toradol and Norflex given IM, rx for Flexeril, to take with Tylenol - declined her request for stronger pain medication d/t her history of drug/alcohol abuse Departure Clinical Impression: Back pain Qualifiers: Back pain location: low back pain Chronicity: chronic Back pain laterality: left Sciatica presence: with sciatica Sciatica laterality: sciatica of left side Qualified Code(s): M54.42 - Lumbago with sciatica, left side Sciatica Qualifiers: Laterality: left Qualified Code(s): M54.32 - Sciatica, left side - Departure Disposition: Home self-care Condition: Stable Instructions: Sciatica, [id number] Additional Instructions: Take Flexeril every 8 hours as needed for pain/muscle spasms Use ice to sore areas See your doctor if symptoms do not improve in 2 to 3 days Prescriptions: Cyclobenzaprine HCl [Flexeril] 10 mg PO TID PRN #12 tab PRN Reason: MUSCLE SPASMS
[2017-02-06] MEDS ORDERED: ORPHENADRINE CITRATE 30 MG/ML VIAL ONE (11:46)
== END 2017-02-06 11:58 | disposition home or self-care (01) ==
LOC: ER 10:48
DX: M54.42 Lumbago with sciatica, left side (principal); F17.200 Nicotine dependence, unspecified, uncomplicated

== ENCOUNTER 2017-02-08 08:53 | Emergency (ER) | payer OTHER ==
[2017-02-08 09:12] VITALS: BP 121/59
[2017-02-08] MEDS ORDERED: ORPHENADRINE CITRATE 30 MG/ML VIAL IM ONE (09:59)
[2017-02-08] MEDS ORDERED: KETOROLAC TROMETHAMINE 60 MG/2 ML VIAL IM ONE ×2 (09:59→10:02)
[2017-02-08] MEDS ORDERED: ORPHENADRINE CITRATE 30 MG/ML VIAL ONE (10:02)
--- NOTE | 2017-02-08 10:02 | ERNOTE ---
Back Pain ER HPI Date of Service: 02/08/17 Time Seen by Provider: 02/08/17 09:44 Source: patient Exam Limitations: no limitations Immunizations: IMMUNIZATION HX Immunizations Up to Date Yes History of Influenza Vaccine Yes Hx Pneumococcal Vaccination Yes Allergies/Adverse Reactions: Allergies Penicillins Allergy (Intermediate, Verified 02/06/17 11:10) CANT BREATHE morphine Allergy (Verified 02/06/17 11:10) Home Medications: HOME MEDICATIONS Xanax 1 mg PO TID 06/03/16 [Last Taken Unknown] Acetaminophen [Tylenol] 500 mg PO HS 01/16/17 [Last Taken Unknown] Albuterol Sulfate [Proair Hfa] 1 - 2 puff IH Q4H PRN 01/16/17 [Last Taken Unknown] Cyclobenzaprine HCl [Flexeril] 10 mg PO TID PRN #12 tab 02/06/17 [Last Taken Unknown] Gabapentin 300 mg PO TID 02/06/17 [Last Taken Unknown] Carisoprodol [Soma] 250 mg PO TID PRN #90 tab 02/08/17 [Last Taken Unknown] Narrative: Pt. comes in with two day history of flair of her L side low back pain and sciatica. Pt. states that this condition is chronic for her and she denies any numbness, tingling, decreased movement, incontinence of bowel or bladder, or alleviating factors despite coming to the ER and taking prescribed medications for two days. Pt. states that movement and ambulation exacerbates the pain. Review of Systems - Review of Systems Constitutional: Present: no symptoms reported. Absent: recent illness, fever, weakness, fatigue EYE: Present: no symptoms reported ENT: Present: no symptoms reported Respiratory: Present: no symptoms reported. Absent: shortness of breath, cough , wheezing Cardiology: Present: no symptoms reported. Absent: chest pain, palpitations, edema Gastrointestinal/Abdominal: Present: no symptoms reported Genitourinary: Present: no symptoms reported. Absent: frequency, decreased urinary output Musculoskeletal: Present: back pain, muscle pain - L buttock to knee. Absent: joint pain Skin: Present: no symptoms reported. Absent: rash, change in hair/nails Neurological: Present: no symptoms reported. Absent: headache, dizziness/light- headedness, numbness, tingling Endocrine: Present: no symptoms reported All Other Systems: All systems neg except as marked - Patient's Past Medical History Patient History - Medical: Anxiety Patient History - Cardiac/Respiratory: No pertinent hx, Aneurysm Patient History - Cancer: No Hx of Cancer Patient History - Surgical Procedures: Other Patient History - Other: None - Family History Mother Family History - Medical: , Diabetes Type 2, Seizures, Other Family History - Cardiac/Respiratory: No pertinent hx Father Family History - Medical: , No pertinent hx Family History - Cardiac/Respiratory: No pertinent hx Sister Family History - Medical: , No pertinent hx Family History - Cardiac/Respiratory: No pertinent hx Brother Family History - Medical: , No pertinent hx Family History - Cardiac/Respiratory: History Unknown - Social History Living Situations: home Abuse History: No History of abuse Psych History: Hx of Anxiety, Current tx/ever been on anti-depressants or anti- anxiety meds Smoking Status: Current every day smoker Alcohol Use: heavy Drug Use: none - Immunizations Immunizations Up to Date: Yes Hx Pneumococcal Vaccination: Yes History of Influenza Vaccine: Yes Physical Exam - Physical Exam General Appearance: Present: wd/wn, alert, no apparent distress Head Exam: Present: normal inspection, no evidence of injury Eye Exam: Normal inspection: bilateral, PERRL: bilateral, EOMI: bilateral Ears, Nose, Throat: Present: normal ENT inspection, normal pharynx Neck: Present: normal inspection, nontender. Absent: lymphadenopathy (R), lymphadenopathy (L) Respiratory: Present: no respiratory distress, normal breath sounds, no accessory muscle use, chest nontender, lungs clear Cardiovascular/Chest: Present: regular rate, rhythm, no murmur, normal peripheral pulses Gastrointestinal/Abdominal: Present: normal bowel sounds, nontender, nondistended, soft, no organomegaly Back Exam: Present: vertebral tenderness - L5 S1, muscle spasm - L paraspinous and gluteus Extremity Exam: Present: normal inspection, non-tender, normal range of motion, no edema Neurological Exam: Present: alert, oriented, normal mood/affect, no motor/ sensory deficits Skin Exam: Present: normal color, warm/dry. Absent: pallor, skin rash ED Progress - Date and Time Seen: Date and Time: 02/08/17 12:02 Reviewed pt. previous xrays and notes and as pt. denies any injury and symptoms are similar than in the past and pt. has no signs of cord compression feel that pt. likely does not need any more imaging at this time. Pt. states that the flexeril she was prescribed makes her ill and she is unable to take naproxen and Ibuprofen but soma usually helps symptoms so will prescribe soma for pt. - Vital Signs Patient's Vital Signs:: I have reviewed the patient's vital signs. Vital Signs: Vital Signs 02/08/17 09:09 Temperature 36.5 C Pulse Rate 66 Respiratory 17 Rate Blood Pressure 121/59 O2 Sat by Pulse 99 Oximetry - Progress/Reassessment Chief Complaint: Back Pain Departure Clinical Impression: Sciatica Qualifiers: Laterality: left Qualified Code(s): M54.32 - Sciatica, left side Back pain Qualifiers: Back pain location: low back pain Chronicity: chronic Back pain laterality: left Sciatica presence: with sciatica Sciatica laterality: sciatica of left side Qualified Code(s): M54.42 - Lumbago with sciatica, left side - Departure Disposition: Home self-care Condition: Good Instructions: Chronic Pain Additional Instructions: Please follow up with primary provider for further care and referrals. Prescriptions: Carisoprodol [Soma] 250 mg PO TID PRN #90 tab PRN Reason: MUSCLE SPASMS
== END 2017-02-08 10:10 | disposition home or self-care (01) ==
LOC: ER 08:53
DX: M54.42 Lumbago with sciatica, left side (principal); F41.9 Anxiety disorder, unspecified; F17.200 Nicotine dependence, unspecified, uncomplicated

== ENCOUNTER 2017-02-22 10:58 | Emergency (ER) | payer OTHER ==
--- NOTE | 2017-02-22 11:27 | ERNOTE ---
ENT HPI Presenting Symptoms: dental pain Time Seen by Provider: 02/22/17 11:18 Source: patient Exam Limitations: no limitations - Immun/Allergies/Home Medications Immunizations: IMMUNIZATION HX Immunizations Up to Date Yes History of Influenza Vaccine No Hx Pneumococcal Vaccination No Allergies/Adverse Reactions: Allergies Allergy/AdvReac Type Severity Reaction Status Date / Time Penicillins Allergy Intermediate CANT Verified 02/22/17 11:05 BREATHE morphine Allergy Verified 02/22/17 11:05 Home Medications: HOME MEDICATIONS Xanax 1 mg PO TID 06/03/16 [Last Taken Unknown] Acetaminophen [Tylenol] 500 mg PO HS 01/16/17 [Last Taken Unknown] Albuterol Sulfate [Proair Hfa] 1 - 2 puff IH Q4H PRN 01/16/17 [Last Taken Unknown] Gabapentin 300 mg PO TID 02/06/17 [Last Taken Unknown] Doxycycline Monohydrate 100 mg PO BID #20 tablet 02/22/17 [Last Taken Unknown] traMADol HCL [Ultram] 50 mg PO QID PRN #20 tablet 02/22/17 [Last Taken Unknown] - History of Present Illness Narrative: Patient has a long-standing history of poor dentition and now has what appears to be an infected cavity in the left upper. Patient describes the pain as at least moderate or worse in intensity and very achy in nature. The onset of the symptoms has been over the last 24-48 hours and is getting progressively worse. Patient states that she is trying to get into a dentist and apparently will be able to be seen in [place] later this week if not today. Severity: Present: moderate ENT Location: Present: dental Prearrival Treatment: Present: over the counter meds Modifying Factors - Improves: Reports: nothing Modifying Factors - Worsens: Reports: nothing Associated Symptoms - ENT: Reports: denies symptoms Review of Systems - Review of Systems Constitutional: Present: See HPI EYE: Present: no symptoms reported ENT: Present: other - marked dental pain with pronounced dental decay Respiratory: Present: no symptoms reported Cardiology: Present: no symptoms reported Gastrointestinal/Abdominal: Present: no symptoms reported Genitourinary: Present: no symptoms reported Musculoskeletal: Present: no symptoms reported Skin: Present: no symptoms reported Neurological: Present: no symptoms reported Endocrine: Present: no symptoms reported Hematologic/Lymphatic: Present: no symptoms reported Psych: Present: no symptoms reported - Patient's Past Medical History Patient History - Medical: Alcohol Abuse, Chronic Pain, Headache, Migraines, Osteoarthritis, Other - very poor dentition Patient History - Cardiac/Respiratory: No pertinent hx, Aneurysm, CVA/Stroke Patient History - Cancer: No Hx of Cancer Patient History - Surgical Procedures: Other Patient History - Other: None LMP (females 10-50): Menopausal - Family History Mother Family History - Medical: , Diabetes Type 2, Seizures, Other Family History - Cardiac/Respiratory: No pertinent hx Father Family History - Medical: , No pertinent hx Family History - Cardiac/Respiratory: No pertinent hx Sister Family History - Medical: , No pertinent hx Family History - Cardiac/Respiratory: No pertinent hx Brother Family History - Medical: , No pertinent hx Family History - Cardiac/Respiratory: History Unknown - Social History Living Situations: home Abuse History: No History of abuse Psych History: Hx of Anxiety, Current tx/ever been on anti-depressants or anti- anxiety meds Smoking Status: Current every day smoker Alcohol Use: heavy Drug Use: marijuana, other - Immunizations Immunizations Up to Date: Yes Hx Pneumococcal Vaccination: No History of Influenza Vaccine: No Physical Exam - Physical Exam General Appearance: Present: wd/wn, alert, moderate distress Eye Exam: Normal inspection: bilateral, PERRL: bilateral Ears, Nose, Throat: Present: normal pharynx, other - pronounced cavity in the left upper side of the pain, as well as definite dental decay present throughout a variety of teeth Neck: Present: normal inspection, nontender Respiratory: Present: no respiratory distress, normal breath sounds, no accessory muscle use, chest nontender, lungs clear Cardiovascular/Chest: Present: regular rate, rhythm, no murmur, normal peripheral pulses Gastrointestinal/Abdominal: Present: normal bowel sounds, nontender, nondistended, soft, no organomegaly Rectal Exam: Present: deferred Back Exam: Present: normal inspection, normal range of motion Extremity Exam: Present: normal inspection, non-tender, no edema, normal range of motion Neurological Exam: Present: alert, oriented, normal mood/affect Skin Exam: Present: normal color, warm/dry Lymphatic Exam: Present: no adenopathy ED Progress - Vital Signs Patient's Vital Signs:: I have reviewed the patient's vital signs. Vital Signs: Vital Signs 02/22/17 11:02 Temperature 36.5 C Pulse Rate 57 L Respiratory 16 Rate Blood Pressure 154/77 O2 Sat by Pulse 98 Oximetry - Progress/Reassessment Chief Complaint: Dental Problem Plan - Plan Plan: Patient be started on antibiotics, her some tramadol for the pain and she is calling the dentist in [place] when she leaves the department. Departure Clinical Impression: Dental caries, Pain due to dental caries - Departure Disposition: Home self-care Condition: Good Instructions: Dental Caries, [id number] Prescriptions: Doxycycline Monohydrate 100 mg PO BID #20 tablet traMADol HCL [Ultram] 50 mg PO QID PRN #20 tablet PRN Reason: Moderate Pain
[2017-02-22 11:34] VITALS: BP 150/67
== END 2017-02-22 11:28 | disposition home or self-care (01) ==
LOC: ER 10:58
DX: K02.9 Dental caries, unspecified (principal); F17.200 Nicotine dependence, unspecified, uncomplicated

== ENCOUNTER 2017-03-23 08:35 | Emergency (ER) | payer OTHER ==
[2017-03-23 08:41] VITALS: BP 164/74
[2017-03-23] MEDS ORDERED: LIDOCAINE HCL 20 ML UDC MM ONE (08:55)
--- NOTE | 2017-03-23 09:03 | ERNOTE ---
ENT HPI Presenting Symptoms: dental pain Time Seen by Provider: 03/23/17 08:52 Source: patient Exam Limitations: no limitations - Immun/Allergies/Home Medications Immunizations: IMMUNIZATION HX Immunizations Up to Date Yes History of Influenza Vaccine No Hx Pneumococcal Vaccination No Allergies/Adverse Reactions: Allergies Allergy/AdvReac Type Severity Reaction Status Date / Time Penicillins Allergy Intermediate CANT Verified 03/23/17 08:41 BREATHE morphine Allergy Verified 03/23/17 08:41 Home Medications: HOME MEDICATIONS Xanax 1 mg PO TID 06/03/16 [Last Taken Unknown] Acetaminophen [Tylenol] 500 mg PO HS 01/16/17 [Last Taken Unknown] Albuterol Sulfate [Proair Hfa] 1 - 2 puff IH Q4H PRN 01/16/17 [Last Taken Unknown] Gabapentin 300 mg PO TID 02/06/17 [Last Taken Unknown] Clindamycin HCl [Cleocin HCl] 300 mg PO QID #40 capsule 03/23/17 [Last Taken Unknown] Lidocaine HCl [Lidocaine HCl Viscous 2%] 1 appl MM Q1H PRN #50 btl 03/23/17 [ Last Taken Unknown] - History of Present Illness Narrative: Patient has had dental pain for about a month after her tooth fractured. The pain is getting worse, she has not seen a dentist yet Modifying Factors - Improves: Reports: nothing Associated Symptoms - ENT: Reports: denies symptoms Prior Treament: Denies: recently seen, similar symptoms before Review of Systems - Review of Systems Constitutional: Absent: recent illness, fever ENT: Absent: nose congestion Respiratory: Absent: shortness of breath Cardiology: Absent: chest pain Gastrointestinal/Abdominal: Absent: nausea, abdominal pain Genitourinary: Present: no symptoms reported Neurological: Absent: headache - Patient's Past Medical History Patient History - Medical: Alcohol Abuse, Chronic Pain, Headache, Migraines, Osteoarthritis, Other Patient History - Cardiac/Respiratory: No pertinent hx, Aneurysm, CVA/Stroke Patient History - Cancer: No Hx of Cancer Patient History - Surgical Procedures: Other Patient History - Other: None - Family History Mother Family History - Medical: , Diabetes Type 2, Seizures, Other Family History - Cardiac/Respiratory: No pertinent hx Father Family History - Medical: , No pertinent hx Family History - Cardiac/Respiratory: No pertinent hx Sister Family History - Medical: , No pertinent hx Family History - Cardiac/Respiratory: No pertinent hx Brother Family History - Medical: , No pertinent hx Family History - Cardiac/Respiratory: History Unknown - Social History Living Situations: home Abuse History: No History of abuse Psych History: Hx of Anxiety, Current tx/ever been on anti-depressants or anti- anxiety meds Smoking Status: Current every day smoker Have you smoked in the past 12 months: Yes Alcohol Use: heavy Drug Use: marijuana, other - Immunizations Immunizations Up to Date: Yes Hx Pneumococcal Vaccination: No History of Influenza Vaccine: No Physical Exam - Physical Exam General Appearance: Present: wd/wn, alert, no apparent distress Ears, Nose, Throat: Present: normal pharynx, other - poor dentition, left upper jaw: fractured tooth with swollen and tender gum Neck: Present: normal inspection, nontender. Absent: lymphadenopathy (R), lymphadenopathy (L) Respiratory: Present: no respiratory distress, normal breath sounds Cardiovascular/Chest: Present: regular rate, rhythm, no murmur Neurological Exam: Present: alert, oriented, normal mood/affect Skin Exam: Present: normal color, warm/dry ED Progress - Vital Signs Patient's Vital Signs:: I have reviewed the patient's vital signs. Vital Signs: Vital Signs 03/23/17 08:38 Temperature 36.5 C Pulse Rate 62 Respiratory 14 Rate Blood Pressure 164/74 O2 Sat by Pulse 97 Oximetry - Progress/Reassessment Chief Complaint: Dental Problem Departure Clinical Impression: Dental abscess - Departure Disposition: Home self-care Condition: Good Instructions: Dental Abscess, [id number] Additional Instructions: follow up with a dentist [place] Prescriptions: Clindamycin HCl [Cleocin HCl] 300 mg PO QID #40 capsule Lidocaine HCl [Lidocaine HCl Viscous 2%] 1 appl MM Q1H PRN #50 btl PRN Reason: Pain
== END 2017-03-23 09:06 | disposition home or self-care (01) ==
LOC: ER 08:35
DX: K04.7 Periapical abscess without sinus (principal); G89.29 Other chronic pain; Z86.73 Personal history of transient ischemic attack (TIA), and cerebral infarction without residual deficits; F17.200 Nicotine dependence, unspecified, uncomplicated

== ENCOUNTER 2017-04-17 08:33 | Emergency (ER) | payer OTHER ==
[2017-04-17 08:44] VITALS: BP 142/93
[2017-04-17] MEDS ORDERED: ACETAMINOPHEN 325 MG TABLET PO ONE (08:53)
[2017-04-17] MEDS ORDERED: CYCLOBENZAPRINE HCL 10 MG TABLET PO ONE (08:53)
[2017-04-17] MEDS ORDERED: CYCLOBENZAPRINE HCL 10 MG TABLET ONE (08:55)
[2017-04-17] MEDS ORDERED: ACETAMINOPHEN 325 MG TABLET ONE (08:56)
--- NOTE | 2017-04-17 09:04 | ERNOTE ---
Back Pain ER HPI Presenting Symptoms: injury/pain to back, hx chronic back pain Time Seen by Provider: 04/17/17 08:39 Source: patient Exam Limitations: no limitations Immunizations: IMMUNIZATION HX Immunizations Up to Date Yes History of Influenza Vaccine No Hx Pneumococcal Vaccination No Allergies/Adverse Reactions: Allergies Penicillins Allergy (Intermediate, Verified 04/17/17 08:44) CANT BREATHE morphine Allergy (Verified 04/17/17 08:44) Home Medications: HOME MEDICATIONS Acetaminophen [Tylenol] 500 mg PO HS 01/16/17 [Last Taken Unknown] Gabapentin 300 mg PO TID 02/06/17 [Last Taken Unknown] Cyclobenzaprine HCl [Flexeril] 10 mg PO TID PRN #30 tab 04/17/17 [Last Taken Unknown] Narrative: Patient is here for back pain that started to days ago. She has a history of chronic pain, in particular back pain, she is being seen at the [facility]. Over the weekend she was helping with her grandchildren and did a lot of lifting and bending. She has had left lower back pain since, radiating to the buttock only, denies any injury or falls. She took ibuprofen at 07:30 According to her chart she had a lumbar CT in 04/2016 which showed chronic degenerative changes. Timing: Reports: constant Quality/Severity: Reports: moderate Location of pain: Reports: lower back, other Recent Injury?: Reports: no Possible Precipitating Factor: Reports: lifting, turning/bending. Denies: fall/ near fall, trauma Modifying Factors - (Improves): Reports: other - nothing Modifying Factors - (Worsens): Reports: movement to left, movement flexion. Denies: cough/deep breaths Associated Symptoms: Denies: fever/chills, sweating, constipation/incontinence, nausea/vomiting, problems urinating, difficulty walking, lightheadedness, numbess/weakness in legs Prior Treament: Reports: similar symptoms before. Denies: recently seen Review of Systems - Review of Systems Constitutional: Absent: recent illness, fever ENT: Absent: nose congestion, sore throat Respiratory: Absent: shortness of breath Cardiology: Absent: chest pain Gastrointestinal/Abdominal: Absent: nausea, abdominal pain Genitourinary: Present: no symptoms reported Musculoskeletal: Present: See HPI Skin: Present: no symptoms reported Neurological: Absent: weakness, numbness Psych: Absent: anxiety, emotional problems - Patient's Past Medical History Patient History - Medical: Alcohol Abuse, Chronic Pain, Headache, Migraines, Osteoarthritis, Other Patient History - Cardiac/Respiratory: No pertinent hx, Aneurysm, CVA/Stroke Patient History - Cancer: No Hx of Cancer Patient History - Surgical Procedures: Other Patient History - Other: None LMP (females 10-50): Menopausal - Family History Mother Family History - Medical: , Diabetes Type 2, Seizures, Other Family History - Cardiac/Respiratory: No pertinent hx Father Family History - Medical: , No pertinent hx Family History - Cardiac/Respiratory: No pertinent hx Sister Family History - Medical: , No pertinent hx Family History - Cardiac/Respiratory: No pertinent hx Brother Family History - Medical: , No pertinent hx Family History - Cardiac/Respiratory: History Unknown - Social History Living Situations: home Abuse History: No History of abuse Psych History: Hx of Anxiety, Current tx/ever been on anti-depressants or anti- anxiety meds Smoking Status: Current every day smoker Cigarettes Packs Per Day: 0.5 Have you smoked in the past 12 months: Yes Alcohol Use: none Drug Use: none - Immunizations Immunizations Up to Date: Yes Hx Pneumococcal Vaccination: No History of Influenza Vaccine: No Physical Exam - Physical Exam General Appearance: Present: wd/wn, alert, no apparent distress Head Exam: Present: normal inspection, no evidence of injury Respiratory: Present: no respiratory distress, normal breath sounds, lungs clear Cardiovascular/Chest: Present: regular rate, rhythm, no murmur Back Exam: Present: normal inspection, no vertebral tenderness, muscle spasm - left lumbar paravertebral, other - slight pain on straight leg raise Extremity Exam: Present: normal inspection, no edema Neurological Exam: Present: alert, oriented, normal mood/affect, no motor/ sensory deficits DTR: N=norm/NB=norm/brisk/A=abs/DD=dull/dimin/HC=hyperactive: Knee (R): Normal, Knee (L): Normal, Ankle (R): Normal, Ankle (L): Normal Skin Exam: Present: normal color, warm/dry ED Progress - Vital Signs Patient's Vital Signs:: I have reviewed the patient's vital signs. Vital Signs: Vital Signs 04/17/17 08:38 Temperature 36.0 C L Pulse Rate 60 Respiratory 16 Rate Blood Pressure 142/93 O2 Sat by Pulse 97 Oximetry - Progress/Reassessment Chief Complaint: Back Pain Departure Clinical Impression: Chronic pain Qualifiers: Chronic pain type: other chronic pain Qualified Code(s): G89.29 - Other chronic pain Sciatica Qualifiers: Laterality: left Qualified Code(s): M54.32 - Sciatica, left side - Departure Disposition: Home self-care Condition: Stable Instructions: Sciatica, [id number] Additional Instructions: [facility] Prescriptions: Cyclobenzaprine HCl [Flexeril] 10 mg PO TID PRN #30 tab PRN Reason: MUSCLE SPASMS
== END 2017-04-17 08:57 | disposition home or self-care (01) ==
LOC: ER 08:33
DX: M54.32 Sciatica, left side (principal); G89.29 Other chronic pain; F17.210 Nicotine dependence, cigarettes, uncomplicated

== ENCOUNTER 2017-04-30 10:11 | Emergency (ER) | payer OTHER ==
--- NOTE | 2017-04-30 10:30 | ERNOTE ---
Headache ER HPI - Narrative Date of Service: 04/30/17 - General Presenting Symptoms: headache, other - Sudden headache beginning 5 hrs Time Seen by Provider: 04/30/17 10:13 Source: patient Exam Limitations: no limitations - Immun/Allergies/Home Medications Immunizations: IMMUNIZATION HX Immunizations Up to Date Yes History of Influenza Vaccine No Hx Pneumococcal Vaccination No Allergies/Adverse Reactions: Allergies Penicillins Allergy (Intermediate, Verified 04/17/17 08:44) CANT BREATHE Home Medications: HOME MEDICATIONS Gabapentin 300 mg PO TID 02/06/17 [Last Taken Unknown] ALPRAZolam [Xanax] 1 mg PO TID PRN 04/30/17 [Last Taken Unknown] - History of Present Illness Narrative: Patient states approx 5 hrs ago she had a sudden onset of headache on the left frontal side of her head. Denies any vision changes. States she has no unilateral weakness. Activity at onset: other - sleeping Timing of Headache: abrupt, thunderclap Context Headache: Present: new onset Quality: Present: sharp, stabbing Severity Maximum: Present: severe Severity-Currently: Present: severe Headache frequency: Present: no recent headache Modifying Factors - (Improves): Reports: rest Modifying Factors - (Worsens): Reports: movement Associated Symptoms: Reports: denies symptoms Exacerbated by:: Reports: movement Review of Systems - Narrative Narrative: See HPI. - Review of Systems Constitutional: Present: weakness, other - Denies any neck pain. EYE: Present: no symptoms reported ENT: Present: no symptoms reported Respiratory: Present: no symptoms reported Cardiology: Present: no symptoms reported Gastrointestinal/Abdominal: Present: no symptoms reported Genitourinary: Present: no symptoms reported Musculoskeletal: Present: no symptoms reported Skin: Present: no symptoms reported Neurological: Present: other - Severe headache as described above. Worst headache of her life. Denies any focal deficits, vision changes, . States she does get some migraines but this is much worse than any before. Endocrine: Present: no symptoms reported Hematologic/Lymphatic: Present: no symptoms reported Psych: Present: no symptoms reported - Patient's Past Medical History Patient History - Medical: Alcohol Abuse, Chronic Pain, Headache, Migraines, Osteoarthritis, Other Patient History - Cardiac/Respiratory: No pertinent hx, Aneurysm, CVA/Stroke Patient History - Cancer: No Hx of Cancer Patient History - Surgical Procedures: Other Patient History - Other: None - Family History Mother Family History - Medical: , Diabetes Type 2, Seizures, Other Family History - Cardiac/Respiratory: No pertinent hx Father Family History - Medical: , No pertinent hx Family History - Cardiac/Respiratory: No pertinent hx Sister Family History - Medical: , No pertinent hx Family History - Cardiac/Respiratory: No pertinent hx Brother Family History - Medical: , No pertinent hx Family History - Cardiac/Respiratory: History Unknown - Social History Abuse History: No History of abuse Psych History: Hx of Anxiety, Current tx/ever been on anti-depressants or anti- anxiety meds - Immunizations Immunizations Up to Date: Yes Hx Pneumococcal Vaccination: No History of Influenza Vaccine: No Physical Exam - Physical Exam General Appearance: Present: wd/wn, alert Head Exam: Present: normal inspection, no evidence of injury, other - States she has tenderness over the left frontal area back into the temporal lobe. Denies any trauma. No facial droop. No ptosis. Tongue midline. Eye Exam: Normal inspection: bilateral, PERRL: bilateral, EOMI: bilateral Ears, Nose, Throat: Present: normal ENT inspection Neck: Present: normal inspection, nontender, supple, full range of motion Respiratory: Present: no respiratory distress Cardiovascular/Chest: Present: regular rate, rhythm, normal peripheral pulses, systolic murmur Peripheral Pulses: N=norm/S=strong/W=weak/B=bound/A=absent: Radial (R): Normal, Radial (L): Normal, Dorsalis-pedis (R): Normal, Dorsalis-pedis (L): Normal Gastrointestinal/Abdominal: Present: normal bowel sounds, nontender, nondistended, soft, no organomegaly Back Exam: Present: normal inspection, normal range of motion, no CVA tenderness , no vertebral tenderness Extremity Exam: Present: normal inspection, non-tender, normal range of motion, no edema Neurological Exam: Present: alert, oriented, no motor/sensory deficits, service delivery management consultant II- XII nml as tested Skin Exam: Present: normal color, warm/dry Lymphatic Exam: Present: no adenopathy ED Progress - Results and Orders Patient's Lab Results:: I have reviewed the patient's lab results. - Vital Signs Patient's Vital Signs:: I have reviewed the patient's vital signs. - EKG EKG: LVH EKG read: Reviewed by me - CT/Ultrasound CT/Ultrasound Narrative: head CT negative for acute bleed confirmed by me and radiologist. - Progress/Reassessment Chief Complaint: Headache Progress:: Improved Departure Clinical Impression: Headache Qualifiers: Headache type: other complicated headache syndrome Qualified Code(s): G44.59 - Other complicated headache syndrome - Departure Disposition: Home Follow Up Needed Condition: Good Additional Instructions: Headache has improved. Labs and head CT are acceptable. Continue home medication and follow up with family provider for evaluation in 2-3 days. If you worsen let us know.
[2017-04-30 10:39] LABS: Hematocrit 39.3 % (37.0-47.0); Hemoglobin 13.2 gm/dL (12.5-16.0); Mean Cell Volume 93.3 fl (78-100); Mean Corpuscular Hemoglobin 31.4 pg (27-31); Mean Corpuscular Hgb Conc 33.6 g/dl (32-36); Mean Platelet Volume 9.3 fl (6.0-9.5); Neutrophil # 3.1 K/mm3 (1.3-6.0); Neutrophil % 51.8 % (42-75.0); Platelet Count 287 K/mm3 (150-450); Red Blood Count 4.21 M/mm3 (4.2-5.4); Red Cell Distribution Width 13.7 % (11.5-14.0); White Blood Count 5.9 K/mm3 (4.0-10.5)
[2017-04-30 10:49] LABS: Urine Bilirubin Negative (NEGATIVE); Urine Blood Negative /ul (NEGATIVE); Urine Ketone Negative (NEGATIVE); Urine Nitrite Negative (NEGATIVE); Urine Protein Negative (NEGATIVE); Urine Urobilinogen Normal (NORMAL)
[2017-04-30 10:53] LABS: Albumin * 3.5 gm/dl (3.4-5.0); Anion Gap 12.1 mmol/L (6.8-13.8); BUN/Creatinine Ratio 19.8 (9.0-21.6); Bilirubin, Total 0.3 mg/dL (0.0-1.1); Ca. Corrected For Albumin 9.2 mg/dL (8.4-10.2); Calcium * 9.1 mg/dL (7.9-10.9); Carbon Dioxide 24.8 mmol/L (24-32.6); Potassium 3.9 mmol/L (3.4-4.6); Total Protein 7.1 gm/dL (6.2-8.2)
[2017-04-30 10:55] LABS: Urine Appearance Clear; Urine Bacteria TRACE; Urine Color Yellow; Urine RBC None Seen /hpf (0-5); Urine WBC None Seen /hpf (0-5)
[2017-04-30 11:04] LABS: Cocaine Ur Negative (NEGATIVE); Urine Barbiturate Negative (NEGATIVE); Urine Benzodiazepines Negative (NEGATIVE); Urine Opiates Negative (NEGATIVE); Urine PCP Negative (NEGATIVE); Urine THC Negative (NEGATIVE)
[2017-04-30] MEDS ORDERED: PROMETHAZINE HCL 25 MG/ML AMPUL IM ONE (11:07)
[2017-04-30] MEDS ORDERED: SUMAtriptan SUCCINATE 6 MG/0.5 ML VIAL SC ONE ×2 (11:08→11:23)
[2017-04-30] MEDS ORDERED: PROMETHAZINE HCL 25 MG/ML AMPUL ONE (11:23)
[2017-04-30 11:50] VITALS: BP 128/87
[2017-04-30] MEDS ORDERED: traMADol HCL 50 MG TABLET PO ONE (11:53)
[2017-04-30] MEDS ORDERED: traMADol HCL 50 MG TABLET ONE (11:58)
== END 2017-04-30 12:13 | disposition home or self-care (01) ==
LOC: ER 10:11
DX: G44.59 Other complicated headache syndrome (principal); F41.9 Anxiety disorder, unspecified

== ENCOUNTER 2017-05-06 12:51 | Emergency (ER) | payer OTHER ==
[2017-05-06] MEDS ORDERED: NORMAL SALINE 1,000 ML IV ONE (13:08)
--- NOTE | 2017-05-06 13:50 | ERNOTE ---
Medical Problem HPI - Narrative Date of Service: 05/06/17 - General Chief Complaint: Nausea/Vomiting Time Seen by Provider: 05/06/17 13:03 Source: EMS, RN notes reviewed Exam Limitations: clinical condition - Immun/Allergies/Home Medications Immunizations: IMMUNIZATION HX Immunizations Up to Date Yes History of Influenza Vaccine No Hx Pneumococcal Vaccination No Allergies/Adverse Reactions: Allergies Penicillins Allergy (Intermediate, Verified 05/06/17 12:58) CANT BREATHE Home Medications: HOME MEDICATIONS Gabapentin 300 mg PO TID 02/06/17 [Last Taken Unknown] ALPRAZolam [Xanax] 1 mg PO TID PRN 04/30/17 [Last Taken Unknown] - History of Present History Narrative: Inez is a 62-year-old female brought to the emergency department by ambulance for nausea and vomiting. It was reported that she had been moving a bed which aggravated her chronic back pain and this led to nausea and vomiting. EMS was contacted by the patient's son. The patient is unable to provide any history. Her son reports that she did began complaining of increased back pain after moving a piece of furniture this morning. She was having difficulty walking. She had told him at that time that her pain was better when she was walking rather than when she was laying down or sitting. The son has been rationing the patient's is Xanax out to her due to her previous problems with abusing it. She believes that he took the tablets that she is allotted for the day or once today, but also thinks that she may have been stashing some of it away and may have taken more than just 4 tablets. He had left the house for a brief time. When he returned, he found her laying face down and vomiting. She reported that she could not get up because her back hurt so bad. She was noted to be somewhat impaired at that time. Review of Systems - Narrative Narrative: Unable to obtain ROS due to patient condition - Patient's Past Medical History Patient History - Medical: Alcohol Abuse, Chronic Pain, Headache, Migraines, Osteoarthritis, Other Patient History - Cardiac/Respiratory: No pertinent hx, Aneurysm, CVA/Stroke Patient History - Cancer: No Hx of Cancer Patient History - Surgical Procedures: Other Patient History - Other: None - Family History Mother Family History - Medical: , Diabetes Type 2, Seizures, Other Family History - Cardiac/Respiratory: No pertinent hx Father Family History - Medical: , No pertinent hx Family History - Cardiac/Respiratory: No pertinent hx Sister Family History - Medical: , No pertinent hx Family History - Cardiac/Respiratory: No pertinent hx Brother Family History - Medical: , No pertinent hx Family History - Cardiac/Respiratory: History Unknown - Social History Living Situations: home Abuse History: No History of abuse Psych History: Hx of Anxiety, Current tx/ever been on anti-depressants or anti- anxiety meds Alcohol Use: none Drug Use: none - Immunizations Immunizations Up to Date: Yes Hx Pneumococcal Vaccination: No History of Influenza Vaccine: No Physical Exam - Physical Exam General Appearance: Present: wd/wn, lethargic - arouseable but remains awake only briefly Respiratory: Present: no respiratory distress, normal breath sounds, no accessory muscle use, lungs clear Cardiovascular/Chest: Present: regular rate, rhythm, no murmur, normal peripheral pulses Gastrointestinal/Abdominal: Present: normal bowel sounds, nontender, nondistended, soft Extremity Exam: Present: normal inspection, no edema Neurological Exam: Present: other - somnolent. Absent: alert, oriented, normal mood/affect Skin Exam: Present: normal color, warm/dry, other - mucous membranes appear dry ED Progress - Results and Orders Patient's Lab Results:: I have reviewed the patient's lab results. - Vital Signs Patient's Vital Signs:: I have reviewed the patient's vital signs. Vital Signs: Vital Signs 05/06/17 05/06/17 12:54 13:13 Temperature 36.1 C L Pulse Rate 59 L 60 Respiratory 23 H 21 H Rate Blood Pressure 148/68 140/66 O2 Sat by Pulse 90 95 Oximetry - CT/Ultrasound CT/Ultrasound Narrative: Head CT shows no interval change since 04/30/17 and no acute intracranial process - Progress/Reassessment Chief Complaint: Nausea/Vomiting Progress:: Improved Plan - Plan Plan: The patient became more alert after returning from her CT scan. She did not have any further vomiting. She received a K wire for her potassium of 5.1. Her CT scan of her head was without acute findings, as well as her lab work aside from potassium. She was informed that she would be discharged home, she became tearful and very upset. She reports that she is afraid to be at home alone because she has been falling at home. She does live with her son. She recounts the episode of vomiting and then syncope earlier today several times and says that she felt like she was dying. Despite reassurance that vomiting can sometimes cause syncope, the patient remains very upset and believes that she is being discharged because we do not want her here. Departure Clinical Impression: Syncope Qualifiers: Syncope type: unspecified Qualified Code(s): R55 - Syncope and collapse Vomiting Qualifiers: Vomiting type: unspecified Vomiting Intractability: non-intractable Nausea presence: with nausea Qualified Code(s): R11.2 - Nausea with vomiting, unspecified - Departure Disposition: Home Follow Up Needed Condition: Stable Instructions: Syncope, [id number] Additional Instructions: Continue your routine medications Diet as tolerated Return to the ER if needed for new/worsening symptoms
[2017-05-06 13:51] LABS: Hematocrit 36.9 % (37.0-47.0); Hemoglobin 12.3 gm/dL (12.5-16.0); Mean Cell Volume 93.4 fl (78-100); Mean Corpuscular Hemoglobin 31.1 pg (27-31); Mean Corpuscular Hgb Conc 33.3 g/dl (32-36); Mean Platelet Volume 8.4 fl (6.0-9.5); Neutrophil # 6.5 K/mm3 (1.3-6.0); Neutrophil % 65.7 % (42-75.0); Platelet Count 340 K/mm3 (150-450); Red Blood Count 3.95 M/mm3 (4.2-5.4); Red Cell Distribution Width 13.8 % (11.5-14.0); White Blood Count 9.9 K/mm3 (4.0-10.5)
[2017-05-06 13:51] LABS: Cocaine Ur Negative (NEGATIVE); Urine Barbiturate Negative (NEGATIVE); Urine Benzodiazepines Positive (NEGATIVE); Urine Opiates Negative (NEGATIVE); Urine PCP Negative (NEGATIVE); Urine THC Negative (NEGATIVE)
[2017-05-06 13:58] LABS: Urine Appearance Clear; Urine Bacteria None Seen; Urine Bilirubin Negative (NEGATIVE); Urine Blood Negative /ul (NEGATIVE); Urine Color Yellow; Urine Ketone Negative (NEGATIVE); Urine Nitrite Negative (NEGATIVE); Urine Protein Negative (NEGATIVE); Urine RBC None Seen /hpf (0-5); Urine Urobilinogen Normal (NORMAL); Urine WBC None Seen /hpf (0-5); Urine pH 6.5 pH (5.0-7.0)
[2017-05-06 14:06] LABS: ALT 27 U/L (19-67); AST 17 U/L (0-48); Albumin * 3.2 gm/dl (3.4-5.0); Alkaline Phosphatase * 110 U/L (50-170); Anion Gap 11.7 mmol/L (6.8-13.8); BUN/Creatinine Ratio 16.7 (9.0-21.6); Bilirubin, Total 0.2 mg/dL (0.0-1.1); Blood Urea Nitrogen 14 mg/dL (3-23); Ca. Corrected For Albumin 8.9 mg/dL (8.4-10.2); Calcium * 8.6 mg/dL (7.9-10.9); Carbon Dioxide 27.4 mmol/L (24-32.6); Chloride 105 mmol/L (97-106); Glucose * 124 mg/dL (70-110); Potassium 3.1 mmol/L (3.4-4.6); Sodium 141 mmol/L (132-142); Total Protein 6.6 gm/dL (6.2-8.2)
[2017-05-06] MEDS ORDERED: POTASSIUM CHLORIDE 100 ML IV ONE (15:13)
[2017-05-06 17:13] VITALS: BP 133/58
== END 2017-05-06 18:15 | disposition home or self-care (01) ==
LOC: ER 12:51
PROC: 0T9B7ZZ Drainage of Bladder, Via Natural or Artificial Opening (ICD-10-PCS; principal; 2017-05-06)
DX: R55 Syncope and collapse (principal); R11.2 Nausea with vomiting, unspecified
CPT/HCPCS: 36415; 51701; 70450; 80053; 80307; 81001; 85025; 96365; 99284; G0481

== ENCOUNTER 2017-05-09 13:50 | Emergency (ER) | payer OTHER ==
[2017-05-09 14:00] VITALS: BP 134/82
[2017-05-09] MEDS ORDERED: KETOROLAC TROMETHAMINE 60 MG/2 ML VIAL IM ONE ×2 (14:16→14:34)
--- NOTE | 2017-05-09 14:36 | ERNOTE ---
Lower Extremity HPI - Narrative Date of Service: 05/09/17 - General Lower Extremities Pain: foot: right Time Seen by Provider: 05/09/17 14:03 Source: patient Exam Limitations: no limitations - Immun/Allergies/Home Medications Immunizations: IMMUNIZATION HX Immunizations Up to Date Yes History of Influenza Vaccine No Hx Pneumococcal Vaccination No Allergies/Adverse Reactions: Allergies Allergy/AdvReac Type Severity Reaction Status Date / Time Penicillins Allergy Intermediate CANT Verified 05/09/17 14:00 BREATHE Home Medications: HOME MEDICATIONS Gabapentin 300 mg PO TID 02/06/17 [Last Taken Unknown] ALPRAZolam [Xanax] 1 mg PO TID PRN 04/30/17 [Last Taken Unknown] Naproxen [Naprosyn] 500 mg PO BID PRN #60 tab 05/09/17 [Last Taken Unknown] - History of Present Illness Narrative: Pt. comes in with c/o R foot pain for 8 hours. Pt. denies any injury, fever, numbness or tingling. Pt. denies any SOB, CP, NVD, but states that resting alleviates the pain and walking aggravates the pain until she has been walking for a while. Pt. states that she went to her pharmacy and they recommended a compression stocking pt. denies any change in pain with this. Review of Systems - Review of Systems Constitutional: Present: no symptoms reported. Absent: recent illness, fever, chills, weakness, fatigue, malaise EYE: Present: no symptoms reported ENT: Present: no symptoms reported Respiratory: Present: no symptoms reported. Absent: shortness of breath, cough , wheezing Cardiology: Present: no symptoms reported. Absent: chest pain, palpitations, edema Gastrointestinal/Abdominal: Present: no symptoms reported. Absent: nausea, vomiting, diarrhea Genitourinary: Present: no symptoms reported Musculoskeletal: Present: joint pain - R foot pain. Absent: back pain Skin: Present: no symptoms reported. Absent: rash, change in color Neurological: Present: no symptoms reported. Absent: headache, dizziness/light- headedness, numbness, tingling All Other Systems: All systems neg except as marked - Patient's Past Medical History Patient History - Medical: Alcohol Abuse, Chronic Pain, Headache, Migraines, Osteoarthritis Patient History - Cardiac/Respiratory: No pertinent hx, Aneurysm, CVA/Stroke Patient History - Cancer: No Hx of Cancer Patient History - Surgical Procedures: Other Patient History - Other: None LMP (females 10-50): Menopausal - Family History Mother Family History - Medical: , Diabetes Type 2, Seizures, Other Family History - Cardiac/Respiratory: No pertinent hx Father Family History - Medical: , No pertinent hx Family History - Cardiac/Respiratory: No pertinent hx Sister Family History - Medical: , No pertinent hx Family History - Cardiac/Respiratory: No pertinent hx Brother Family History - Medical: , No pertinent hx Family History - Cardiac/Respiratory: History Unknown - Social History Living Situations: home Abuse History: No History of abuse Psych History: Hx of Anxiety, Current tx/ever been on anti-depressants or anti- anxiety meds Smoking Status: Current every day smoker Have you smoked in the past 12 months: Yes - cigars - Immunizations Immunizations Up to Date: Yes Hx Pneumococcal Vaccination: No History of Influenza Vaccine: No Physical Exam - Physical Exam General Appearance: Present: wd/wn, alert, no apparent distress Head Exam: Present: normal inspection, no evidence of injury Eye Exam: Normal inspection: bilateral Respiratory: Present: no respiratory distress, normal breath sounds, no accessory muscle use, chest nontender, lungs clear Cardiovascular/Chest: Present: regular rate, rhythm, no murmur, normal peripheral pulses Extremity Exam: Present: normal range of motion, no edema, other - volar medial arch tenderness Neurological Exam: Present: alert, oriented, normal mood/affect, no motor/ sensory deficits Skin Exam: Present: normal color, warm/dry. Absent: pallor, skin rash ED Progress - Vital Signs Patient's Vital Signs:: I have reviewed the patient's vital signs. Vital Signs: Vital Signs 05/09/17 13:58 Temperature 37.3 C Pulse Rate 74 Respiratory 15 Rate Blood Pressure 134/82 O2 Sat by Pulse 97 Oximetry - X-Ray X-Ray #1 X-Ray: foot Interpretation: Reviewed by me X-ray Comments: no obvious acute osseous abnormality - Progress/Reassessment Chief Complaint: Foot Injury/Pain Progress:: Improved Departure Clinical Impression: Plantar fasciitis - Departure Disposition: Home self-care Condition: Good Instructions: Plantar Fasciitis Additional Instructions: Please follow up with Dr Foster to get orthotic shoes. Until then please use walker to ambulate. Prescriptions: Naproxen [Naprosyn] 500 mg PO BID PRN #60 tab PRN Reason: Pain
== END 2017-05-09 15:13 | disposition home or self-care (01) ==
LOC: ER 13:50
DX: M72.2 Plantar fascial fibromatosis (principal); F17.200 Nicotine dependence, unspecified, uncomplicated; F41.9 Anxiety disorder, unspecified